=== PATIENT | female | born 2000 | race Caucasian/White ===

== ENCOUNTER 2024-02-01 12:19 | Outpatient (CLI) | payer MEDICAID, SELFPAY ==
[2024-02-01 13:40] LABS: HCG,Quantitative 9118 mIU/ml (0-5.42)
[2024-02-02 08:51] LABS: Progesterone 12.2 ng/mL (.)
== END 2024-02-01 23:59 | disposition home or self-care (01) ==
LOC: LAB 12:21
PROVIDERS: Visit Provider Obstetrics & Gynecology
DX: N92.6 Irregular menstruation, unspecified (principal)
CPT/HCPCS: 36415; 84144; 84702

== ENCOUNTER 2024-02-21 08:35 | Outpatient (CLI) | payer MEDICAID, SELFPAY | END 2024-02-21 23:59 | disposition home or self-care (01) | LOC: LAB.DROPOF 02-22 15:10 | PROVIDERS: Visit Provider Obstetrics & Gynecology | DX: Z34.90 Encounter for supervision of normal pregnancy, unspecified, unspecified trimester (principal) | CPT/HCPCS: 87086; 87088; 87186 ==

== ENCOUNTER 2024-02-28 11:04 | Outpatient (CLI) | payer MEDICAID, SELFPAY ==
[2024-02-28 11:44] LABS: Basophils % 0.5 % (0.1-2.0); Eosinophils % 0.6 % (0.1-12.0); Hematocrit 41.8 % (37.0-47.0); Hemoglobin 13.2 g/dL (12.2-16.2); Lymphocytes # 1.6 K/mm3 (0.7-4.5); Lymphocytes % 25.4 % (10-50); Mean Corpuscular HGB Conc 31.7 g/dL (31.8-35.4); Mean Corpuscular Hemoglobin 24.6 pg (27.0-31.2); Mean Corpuscular Volume 77.6 fl (81-99); Mean Platelet Volume 8.8 fl (7.4-10.4); Monocytes # 0.3 K/mm3 (0.1-1.0); Monocytes % 4.3 % (1.7-9.3); Neutrophils # 4.3 K/mm3 (1.8-7.8); Neutrophils % 69.1 % (37.0-80.0); Platelet Count 316 K/mm3 (142-424); Red Blood Count 5.38 M/mm3 (4.20-5.40); White Blood Count 6.2 K/mm3 (4.8-10.8)
[2024-02-28 12:10] LABS: Alanine Aminotransferase 26 U/L (12-78); Albumin Level 3.7 g/dl (3.5-5.0); Albumin/Globulin Ratio 1.3 (1.1-1.8); Alkaline Phosphatase 56 U/L (38-126); Anion Gap 8.9 mEq/L (5-15); Aspartate Amino Transferase 30 U/L (14-36); Bilirubin,Total 0.5 mg/dl (0.2-1.3); Blood Urea Nitrogen 8 mg/dl (7-17); Calcium 9.3 mg/dl (8.4-10.2); Carbon Dioxide 23 mmol/L (22.0-30.0); Chloride 107 mmol/L (98-107); Estimated Glomerular Filt Rate 196 ml/min (>60); GFR (African American) 237 ML/MIN (>60); Globulin 2.8 g/dL (1.3-3.2); Glucose 150 mg/dl (74-100); Potassium 3.9 mmoL/L (3.5-5.1); Sodium 135 mmol/L (136-145); Total Protein,Serum 6.5 g/dl (6.3-8.2)
[2024-02-28 12:39] LABS: Thyroid Stimulating Hormone 1.44 uIU/mL (0.465-4.68)
[2024-02-28 12:55] LABS: HIV (1&2) Antibody Rapid NONREACTIVE (NONREACTIVE)
[2024-02-29 06:16] LABS: HCV Ab Non Reactive (Non Reactive); Hepatitis B Surface Antigen Negative (Negative)
[2024-02-29 13:43] LABS: Rapid Plasma Reagin Ab Titer Non Reactive titer (NonRea<1:1)
== END 2024-02-28 23:59 | disposition home or self-care (01) ==
LOC: LAB 11:09
PROVIDERS: Visit Provider Obstetrics & Gynecology
DX: Z34.90 Encounter for supervision of normal pregnancy, unspecified, unspecified trimester (principal)
CPT/HCPCS: 86803; 86703; 80050; 80053; 84443; 85025; 86593; 86762; 86850; 87340

== ENCOUNTER 2024-02-29 19:36 | Outpatient (CLI) | payer MEDICAID, SELFPAY ==
[2024-02-29 19:48] VITALS: BMI 26.2
--- NOTE | 2024-02-29 19:48 | PC.NURSE ---
Spoke with Promise gomez [facility] to verify dosing. No patient label on medication left by pharmacy and no orders in the MAR. Dosing is okay to give to patient. 1gram Vanc in 250ml of NS for staphylococcus aureaus.
[2024-02-29 19:51] VITALS: BP 116/68; PULSE 103; RESP 18; TEMP 36.9; O2SAT 100
[2024-02-29 19:58] VITALS: BP 116/68; PULSE 103; RESP 18; TEMP 36.9; O2SAT 100
[2024-02-29] MEDS: VANCOMYCIN HCL 1,000 MG in 0.9 % SODIUM CHLORIDE 250 ML 125 MG IV (19:58)
[2024-02-29 21:55] VITALS: BP 111/65; PULSE 86; RESP 17; TEMP 36.9; O2SAT 100
== END 2024-02-29 21:55 | disposition home or self-care (01) ==
LOC: INF 19:39
PROVIDERS: Visit Provider Obstetrics & Gynecology
DX: B95.61 Methicillin susceptible Staphylococcus aureus infection as the cause of diseases classified elsewhere (principal); O99.830 Other infection carrier state complicating pregnancy; Z3A.18 18 weeks gestation of pregnancy
CPT/HCPCS: J3370; J7050

== ENCOUNTER 2024-03-01 07:59 | Outpatient (CLI) | payer MEDICAID, SELFPAY ==
--- NOTE | 2024-03-01 08:58 | EXP.PHA.CONS ---
Pharmacy Consult Date: 03/01/24 Time: 08:58 Referring provider: DR. LEÓN Reason for Consult:: VANCOMYCIN DOSING Allergies Allergy/AdvReac Type Severity Reaction Status Date / Time No Known Allergies Allergy Verified 02/21/24 08:21 Home Medications ?Medication ?Instructions ?Recorded ?Confirmed ?Type levothyroxine 100 mcg tablet 100 mcg PO DAILY 11/23/18 02/21/24 History (Synthroid) subcutaneous insulin pump #1 ea 11/23/18 02/21/24 History promethazine 12.5 mg tablet 12.5 mg PO TID PRN nausea and 02/21/24 02/21/24 Rx vomiting #30 tabs New Prescriptions to Start Prescriptions: Height: 1.55 m Weight: 63 kg Laboratory Results:: SRCR 0.4 ON 02/28/24 Medical History: Medical History (Updated 02/21/24 @ 10:06 by Lesly León DO) Hypothyroidism complicating Type 1 diabetes mellitus complicating , antepartum Hypothyroidism Diabetes Assessment and Plan Assessment and plan all Dx Assessment and Plan for all problems:: PATIENT RECEIVED VANCOMYCIN 1 GM OVERNIGHT. RECOMMEND CONTINUING WITH VANCOMYCIN 1250 MG Q12H AT THIS TIME.
[2024-03-01 09:15] VITALS: BP 125/85; PULSE 86; RESP 18; O2SAT 100
[2024-03-01] MEDS: 0.9 % SODIUM CHLORIDE 50 ML 100 ML IV (09:18)
[2024-03-01] MEDS: VANCOMYCIN HCL 1,000 MG in 0.9 % SODIUM CHLORIDE 250 ML 125 MG IV (09:18)
[2024-03-01 11:30] VITALS: BP 105/52; PULSE 89; RESP 18; TEMP 36.6; O2SAT 100
--- NOTE | 2024-03-01 11:30 | PC.NURSE ---
1130-PT TO D/C HOME AND TO RETURN AT 1999 THIS EVENING FOR PM DOSE OF VANC
--- NOTE | 2024-03-01 19:45 | PC.NURSE ---
Patient on floor for IV antibiotic infusion. Accompanied by significant other. Patient sitting in chair in room 271.
[2024-03-01 19:49] VITALS: BP 127/68; PULSE 98; RESP 18; TEMP 37.2; O2SAT 100
[2024-03-01] MEDS: VANCOMYCIN HCL 1,250 MG in 0.9 % SODIUM CHLORIDE 250 ML 125 MG IV (19:51)
--- NOTE | 2024-03-01 20:39 | PC.NURSE ---
Patient sitting in chair playing cards with significant other. Tolerating IV infusion well with no redness or swelling noted at midline site. No needs or concerns voiced to RN at this time
--- NOTE | 2024-03-01 21:28 | PC.NURSE ---
Pt in chair, significant other present. Infusing still in progree. No needs voiced. Reports comfortability, call light in reach
== END 2024-03-01 23:59 | disposition home or self-care (01) ==
LOC: INF 08:00
PROVIDERS: Visit Provider Obstetrics & Gynecology
DX: O98.919 Unspecified maternal infectious and parasitic disease complicating pregnancy, unspecified trimester (principal); B95.61 Methicillin susceptible Staphylococcus aureus infection as the cause of diseases classified elsewhere; Z3A.00 Weeks of gestation of pregnancy not specified
CPT/HCPCS: 36410; 36569; 96365; 96366; J3370; J7050

== ENCOUNTER 2024-03-02 08:02 | Outpatient (CLI) | payer MEDICAID, SELFPAY ==
[2024-03-02 09:12] LABS: Vancomycin,Trough < 5.0 ug/mL (5.0-10.0)
[2024-03-02] MEDS: VANCOMYCIN HCL 1,500 MG in 0.9 % SODIUM CHLORIDE 250 ML 125 MG IV ×2 (09:38→20:05)
[2024-03-02 09:45] VITALS: BP 103/57; PULSE 84; RESP 18; O2SAT 100
[2024-03-02 10:15] VITALS: BP 110/62; PULSE 82
[2024-03-02 10:45] VITALS: BP 112/63; PULSE 82
[2024-03-02 11:15] VITALS: BP 121/81; PULSE 81
[2024-03-02 11:45] VITALS: BP 117/65; PULSE 79
[2024-03-02 22:10] VITALS: BP 111/64; PULSE 97; RESP 16; TEMP 36.7; O2SAT 97
== END 2024-03-02 23:59 | disposition home or self-care (01) ==
LOC: INF 08:02
PROVIDERS: Visit Provider Obstetrics & Gynecology
DX: O23.40 Unspecified infection of urinary tract in pregnancy, unspecified trimester (principal)
CPT/HCPCS: 80202; 96365; 96366; J3370

== ENCOUNTER 2024-03-03 07:58 | Outpatient (CLI) | payer MEDICAID, SELFPAY ==
[2024-03-03] MEDS: SODIUM CHLORIDE 0.9% 10ML FLUSH SYRINGE 10 ML IV (08:34)
[2024-03-03] MEDS: VANCOMYCIN HCL 1,500 MG in 0.9 % SODIUM CHLORIDE 250 ML 125 MG IV ×2 (08:34→21:14)
[2024-03-03 08:36] VITALS: BP 100/69; PULSE 69; RESP 14; TEMP 36.7; O2SAT 100; BMI 26.2
[2024-03-03 10:36] VITALS: BP 106/60; PULSE 102; RESP 18; O2SAT 100
[2024-03-03 21:19] VITALS: BMI 26.2
[2024-03-03 21:22] VITALS: BP 126/78; PULSE 102; RESP 18; TEMP 36.7; O2SAT 100
== END 2024-03-03 23:26 | disposition home or self-care (01) ==
PROVIDERS: Visit Provider Obstetrics & Gynecology
DX: N39.0 Urinary tract infection, site not specified (principal)
CPT/HCPCS: 96365; 96366; J3370

== ENCOUNTER 2024-03-04 10:21 | Outpatient (CLI) | payer MEDICAID, SELFPAY ==
[2024-03-04 10:49] VITALS: BMI 26.2
--- NOTE | 2024-03-04 10:57 | PC.NURSE ---
Vanc trough collected per Candice in pharmacy
[2024-03-04 11:07] LABS: Anion Gap 8.3 mEq/L (5-15); Blood Urea Nitrogen 8 mg/dl (7-17); Calcium 8.9 mg/dl (8.4-10.2); Carbon Dioxide 21 mmol/L (22.0-30.0); Chloride 107 mmol/L (98-107); Creatinine Clearance Estimated 288 mL/min (50-200); Estimated Glomerular Filt Rate 273 ml/min (>60); GFR (African American) 331 ML/MIN (>60); Glucose 254 mg/dl (74-100); Potassium 4.3 mmoL/L (3.5-5.1); Sodium 132 mmol/L (136-145)
[2024-03-04 11:14] LABS: Vancomycin,Trough < 5.0 ug/mL (5.0-10.0)
[2024-03-04 20:09] VITALS: BMI 26.2
[2024-03-04] MEDS: VANCOMYCIN HCL 1,000 MG in 0.9 % SODIUM CHLORIDE 250 ML 250 MG IV (20:18)
[2024-03-04 20:22] VITALS: BP 130/71; PULSE 95; RESP 18; TEMP 36.7; O2SAT 97
[2024-03-04 21:01] VITALS: BP 130/71; PULSE 95; RESP 18; TEMP 36.8; O2SAT 97
== END 2024-03-04 23:59 | disposition home or self-care (01) ==
PROVIDERS: Visit Provider Obstetrics & Gynecology
DX: O23.40 Unspecified infection of urinary tract in pregnancy, unspecified trimester (principal); Z3A.11 11 weeks gestation of pregnancy
CPT/HCPCS: 80048; 80202; 96365; 96366; 96367; J3370; J7050

== ENCOUNTER 2024-03-05 08:01 | Outpatient (CLI) | payer MEDICAID, SELFPAY ==
[2024-03-05] VITALS (7 sets, daily range): BP systolic 108–132; BP diastolic 64–86; PULSE 89–103; RESP 16–18; TEMP 36.6–37.2; O2SAT 97–99; BMI 25.6
[2024-03-05] MEDS: VANCOMYCIN HCL 1,000 MG in 0.9 % SODIUM CHLORIDE 250 ML 125 MG IV (08:15)
[2024-03-05] MEDS: VANCOMYCIN HCL 1,000 MG in 0.9 % SODIUM CHLORIDE 250 ML 250 MG IV ×2 (14:00→21:48)
== END 2024-03-05 23:59 | disposition home or self-care (01) ==
PROVIDERS: Visit Provider Obstetrics & Gynecology
DX: O23.41 Unspecified infection of urinary tract in pregnancy, first trimester (principal)
CPT/HCPCS: 96365; 96366; 96367; G0463; J3370; J7050

== ENCOUNTER 2024-03-06 07:35 | Outpatient (CLI) | payer MEDICAID, SELFPAY ==
[2024-03-06 07:50] VITALS: BP 117/68; PULSE 86; RESP 16; TEMP 37; O2SAT 100; BMI 26.4
[2024-03-06] MEDS: VANCOMYCIN HCL 1,000 MG in 0.9 % SODIUM CHLORIDE 250 ML 250 MG IV ×3 (08:15→22:42)
[2024-03-06 08:38] LABS: Vancomycin,Trough 5.1 ug/mL (5.0-10.0)
[2024-03-06 09:15] VITALS: BP 110/67; PULSE 73
[2024-03-06 15:00] VITALS: BP 122/63; PULSE 73; RESP 18; O2SAT 99
[2024-03-06 16:00] VITALS: BP 118/73; PULSE 86
[2024-03-06 22:35] VITALS: BP 129/78; PULSE 81; RESP 16; TEMP 36.7; O2SAT 98
[2024-03-06 22:36] VITALS: BMI 26.4
== END 2024-03-06 23:59 | disposition home or self-care (01) ==
PROVIDERS: Visit Provider Obstetrics & Gynecology
DX: O23.40 Unspecified infection of urinary tract in pregnancy, unspecified trimester (principal); Z3A.11 11 weeks gestation of pregnancy
CPT/HCPCS: 80202; 96365; 96366; 96367; J3370; J7050

== ENCOUNTER 2024-03-07 09:00 | Outpatient (CLI) | payer MEDICAID, SELFPAY ==
[2024-03-07 09:10] VITALS: BP 110/71; PULSE 68; RESP 16; TEMP 36.7; O2SAT 100; BMI 27.1
[2024-03-07] MEDS: VANCOMYCIN HCL 1,000 MG in 0.9 % SODIUM CHLORIDE 250 ML 250 MG IV ×3 (09:18→23:03)
[2024-03-07 10:20] VITALS: BP 119/72; PULSE 100; RESP 18; O2SAT 100
[2024-03-07 15:29] VITALS: BP 107/73; PULSE 71; RESP 18; TEMP 36.8; O2SAT 100
[2024-03-07 16:38] VITALS: BP 137/68; PULSE 97; RESP 18; O2SAT 100
[2024-03-07 23:02] VITALS: BP 119/92; PULSE 89; RESP 16; O2SAT 94
[2024-03-08 00:38] VITALS: BP 124/86; PULSE 92; RESP 16; TEMP 36.7; O2SAT 97
== END 2024-03-08 00:40 | disposition home or self-care (01) ==
LOC: INF 09:00
PROVIDERS: Visit Provider Obstetrics & Gynecology
DX: O23.40 Unspecified infection of urinary tract in pregnancy, unspecified trimester (principal); Z3A.11 11 weeks gestation of pregnancy
CPT/HCPCS: 96365; 96366; 96367; J3370; J7050

== ENCOUNTER 2024-04-21 14:04 | Emergency (ER) | payer MEDICAID, SELFPAY ==
[2024-04-21 14:20] VITALS: BP 116/73; PULSE 102; RESP 20; TEMP 36.6; O2SAT 100; BMI 27.6
--- NOTE | 2024-04-21 14:46 | ED_ITS ---
Discharge Plan Disposition Patient Disposition: Home, Self-Care Condition: Good Prescriptions Prescriptions: New cephalexin 500 mg capsule 500 mg PO BID 10 Days Qty: 20 0RF No Action (DME) subcutaneous insulin pump Misc See Dose Instructions .ROUTE .MEDSUPPLY Qty: 1 Dose Instruction: As directed Rx Instructions: As directed levothyroxine [Synthroid] 100 mcg tablet 100 mcg PO DAILY insulin lispro 100 unit/mL solution See Rx Instructions .ROUTE .COMPLEX Patient Comments: USE DIRECTED-UP TO 100 UNITS DAILY Rx Instructions: DIRECTED Referrals Follow up/Referrals: Provider,Referral, MD [Primary Care Provider] - See instructions Activity Restrictions/Add. Instructions Additional Instructions/Restrictions: *Monitor Temp, Over the counter Motrin or Tylenol as directed/as needed Tylenol every 4 hours and Motrin every 6 hours (as long as your family doctor has told you that you can take it) for fever or pain. and straight to ER if unable to lower temp less than 101.0 after medication given *Warm salt water gargles may help to soothe the throat *Throat Lozenges? *Warm fluids like tea with honey may help to soothe the throat? *Sleep elevated *Humidifier/Vaporizer Jenna pot may help with nasal congestion Follow up IMMEDIATELY for new or worsening symptoms or no Noticeable improvement over the next 48-72 hours. 911 for difficulty breathing or swallowing You were tested for today for Upper Respiratory Panel with COVID19 your test result should be back in the next 24hours, you may check your results on the [facility] Clinical Impressions Clinical Impression: Sinusitis Qualifiers: Sinusitis location: unspecified location Chronicity: unspecified Qualified Code(s): J32.9 - Chronic sinusitis, unspecified Instructions Patient Instructions: DI for Nasal Congestion Print Language Print Language: Portuguese Discharge ED Provider: Anne Sweeney [facility] HPI General Stated complaint: congestion, loss of appetite Mode of Arrival: Ambulatory Source of Information: Patient Limitations: No Limitations Time Seen by Provider: 04/21/24 14:49 Description of Symptoms (Recalled from Triage Doc. by RN): PATIENT C/O COVID/FLU TYPE SYMPTOMS THAT STARTED 3 DAYS AGO. PATIENT REPORTS SHE IS 17 WEEKS HEENT Symptoms (Recalled from RN notes): No Resp Symptoms (Recalled from RN notes): No Skin Symptoms (Recalled from RN notes): No MS Symptoms (Recalled from RN notes): No Functional Status (Recalled from RN notes): WNL History of Present Illness Provider Complaint: Patient states that she is 16wks OB States she has been having sinus congestion and pressure for the last 3-5 days, States that she has been exposed to COVID not sure if she may have a sinus infection or it may be COVID Related Data Home Medications ?Medication ?Instructions ?Recorded ?Confirmed levothyroxine 100 mcg tablet 100 mcg PO DAILY 11/23/18 04/21/24 (Synthroid) subcutaneous insulin pump #1 ea 11/23/18 04/21/24 insulin lispro 100 unit/mL See Rx Instructions .Route .COMPLEX 04/21/24 04/21/24 subcutaneous solution Previous Rx's ?Medication ?Instructions ?Recorded cephalexin 500 mg capsule 500 mg PO BID 10 days #20 caps 04/21/24 Allergies Allergy/AdvReac Type Severity Reaction Status Date / Time No Known Allergies Allergy Verified 03/27/24 09:32 Worker's Comp Is this a Worker's Comp case?: [facility] Dis[facility]: The information contained in this section may have been updated after the patient was seen, as this information can be updated by other users. 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 Travel in the last 8 weeks: None ROS Obtained: Yes All systems reviewed & no additional complaints except as documented and Yes Systems reviewed as appropriate & no additional complaints except as documented Constitutional Constitutional: Reports system reviewed and no additional complaints, except as documented, Reports as per HPI and Reports headache(s) ENT Ears, Nose, Mouth, and Throat: Reports system reviewed and no additional complaints, except as documented, Reports as per HPI, Reports headache(s), Reports nasal congestion, Reports sinus pain and Reports sinus pressure Cardiovascular Cardiovascular: Reports system reviewed and no additional complaints, except as documented and Reports as per HPI Respiratory Respiratory: Reports system reviewed and no additional complaints, except as documented and Reports as per HPI Gastrointestinal Gastrointestingal: Reports system reviewed and no additional complaints, except as documented and as per HPI Neurologic Neurologic: Reports headache(s) Physical Exam General General appearance: alert and in no apparent distress ENT ENT exam: Present mucous membranes moist Expanded ENT Exam Nose exam: Present sinus tenderness Throat exam: Present other (PND noted) Respiratory Respiratory exam: Present normal lung sounds bilaterally; Absent respiratory distress or wheezes Cardiovascular Cardiovascular exam: Present regular rate, normal rhythm and normal heart sounds Neurological Exam Neurological exam: Present alert, oriented X3 and normal gait Medical Decision Making Medical Records Screening: Per USPSTF and CDC recommendations, given the prevalence of disease in our region, it is our hospital?s policy to screen for HIV and viral Hepatitis for all patients aged 18 and over and those with ongoing risk factors. Vladimir Inquiry Pt receiving controlled substance: No Vladimir was queried for this patient: No Vital Signs: 04/21/24 14:20 Temperature 97.8 F Temperature Source Oral Pulse Rate [Left Brachial] 102 H Respiratory Rate 20 Blood Pressure [Left Arm] 116/73 Blood Pressure Mean [Left Arm] 87 Blood Pressure Source [Left Arm] Automatic Cuff Blood Pressure Position [Left Arm] Sitting 02 Sat by Pulse Oximetry 100 Oxygen Delivery Method Room Air Medical Decision Narrative: medication discussed with pharmacy
[2024-04-21 14:55] VITALS: BP 116/73; PULSE 102; RESP 20; TEMP 36.6; O2SAT 100
[2024-04-21 15:00] LABS: Coronavirus 19, PCR Not Detected (NotDetected); Influenza A, PCR Not Detected (NotDetected); Influenza B, PCR Not Detected (NotDetected)
== END 2024-04-21 14:58 | disposition home or self-care (01) ==
PROVIDERS: Emergency Provider Nurse Practitioner
DX: J32.9 Chronic sinusitis, unspecified (principal)
CPT/HCPCS: 87636; 99213; G0381

== ENCOUNTER 2024-05-02 12:43 | Observation (INO) | payer MEDICAID, SELFPAY ==
[2024-05-02] VITALS (8 sets, daily range): BP systolic 109–134; BP diastolic 63–84; PULSE 82–100; RESP 16–17; TEMP 36.4–36.7; O2SAT 96–100; BMI 27.6
--- NOTE | 2024-05-02 12:48 | ED_ITS ---
Discharge Plan Disposition Patient Disposition: Home, Self-Care Prescriptions Prescriptions: No Action (DME) subcutaneous insulin pump Misc See Dose Instructions .ROUTE .MEDSUPPLY Qty: 1 Dose Instruction: As directed Rx Instructions: As directed insulin lispro 100 unit/mL solution See Rx Instructions .ROUTE .COMPLEX Patient Comments: USE DIRECTED-UP TO 100 UNITS DAILY Rx Instructions: DIRECTED promethazine 12.5 mg tablet 12.5 mg PO NEEDED PRN (Reason: Morning Sickness) levothyroxine 125 mcg tablet 125 mcg PO DAILY ondansetron 4 mg tablet,disintegrating 4 mg PO NEEDED PRN (Reason: Nausea) ondansetron 4 mg tablet,disintegrating 4 mg PO NEEDED PRN (Reason: Nausea And Vomiting) Referrals Follow up/Referrals: Provider,Referral, MD [Primary Care Provider] - See instructions Clinical Impressions Clinical Impression: Headache Qualifiers: Headache type: other headache syndrome Qualified Code(s): G44.89 - Other headache syndrome Print Language Print Language: Upper Sorbian Discharge ED Provider: Jan Torres General Adult HPI <Eb Abbott MD - Last Filed: 05/02/24 16:05> General Chief complaint: Headache Stated complaint: vomiting, headache 19 weeks preg Time Seen by Provider: 05/02/24 12:45 Mode of Arrival: Ambulatory Source of Information: Patient Limitations: No Limitations History of Present Illness HPI narrative: This is a 23-year-old female with a history of type 1 diabetes, , currently 18 weeks who presents with acute onset headache and nausea/vomiting. States that she woke up at about 3:30 AM with acute onset, holocephalic headache. States that it has progressively worsened throughout the morning. Reports associated nausea and vomiting. Denies diarrhea. States that she has never had a headache like this before and has no history of migraines. Denies photophobia or vision changes. Denies nuchal rigidity. Denies fever. Related Data Home Medications ?Medication ?Instructions ?Recorded ?Confirmed subcutaneous insulin pump #1 ea 11/23/18 05/02/24 insulin lispro 100 unit/mL See Rx Instructions .Route .COMPLEX 04/21/24 05/02/24 subcutaneous solution levothyroxine 125 mcg tablet 125 mcg PO DAILY 05/02/24 05/02/24 ondansetron 4 mg disintegrating 4 mg PO NEEDED PRN Nausea 05/02/24 05/02/24 tablet ondansetron 4 mg disintegrating 4 mg PO NEEDED PRN Nausea And 05/02/24 05/02/24 tablet Vomiting promethazine 12.5 mg tablet 12.5 mg PO NEEDED PRN Morning 05/02/24 05/02/24 Sickness Allergies Allergy/AdvReac Type Severity Reaction Status Date / Time No Known Allergies Allergy Verified 05/02/24 13:04 [facility] <Eb Abbott MD - Last Filed: 05/02/24 16:05> [facility] Disclaimer: The information contained in this section may have been updated after the patient was seen, as this information can be updated by other users. 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 Travel in the last 8 weeks: None Other Medical History Have you received the Flu Vaccine for this season: No Have you received the Pneumonia Vaccine: No <Eb Abbott MD - Last Filed: 05/02/24 16:05> ROS Obtained: Yes All systems reviewed & no additional complaints except as documented Physical Exam <Eb Abbott MD - Last Filed: 05/02/24 16:05> General General appearance: alert and in no apparent distress Eye Eye exam: Present normal appearance, PERRL and EOMI Respiratory Respiratory exam: Present normal lung sounds bilaterally; Absent respiratory distress Cardiovascular Cardiovascular exam: Present regular rate and normal rhythm Abdominal Exam Abdominal exam: Present soft and distention; Absent tenderness, guarding or rebound Extremities Exam Extremities exam: Present normal inspection Neurological Exam Neurological exam: Present alert and oriented X3 Skin Skin exam: Present warm and dry Medical Decision Making <Eb Abbott MD - Last Filed: 05/02/24 16:05> Medical Records Medical records reviewed: Yes I reviewed the patient's medical records. Screening: Per USPSTF and CDC recommendations, given the prevalence of disease in our region, it is our hospital?s policy to screen for HIV and viral Hepatitis for all patients aged 18 and over and those with ongoing risk factors. 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 04/25/2024 notable for patient's past medical history of type 1 diabetes and OB visit at 18 weeks and 1 day Vladimir Inquiry Pt receiving controlled substance: No Vital Signs: 05/02/24 12:56 05/02/24 12:57 05/02/24 14:30 Temperature 97.6 F Temperature Source Oral Pulse Rate 100 H 89 Pulse Rate [Left] 87 Respiratory Rate 16 Blood Pressure 117/80 124/80 Blood Pressure [Right Arm] 134/84 Blood Pressure Mean 91 Blood Pressure Mean [Right Arm] 100 Blood Pressure Source [Right Arm] Automatic Cuff Blood Pressure Position [Right Arm] Sitting 02 Sat by Pulse Oximetry 100 100 98 Oxygen Delivery Method Room Air Room Air Room Air 05/02/24 15:00 05/02/24 15:30 Temperature Temperature Source Pulse Rate 89 82 Pulse Rate [Left] Respiratory Rate Blood Pressure 119/81 121/76 Blood Pressure [Right Arm] Blood Pressure Mean 90 86 Blood Pressure Mean [Right Arm] Blood Pressure Source [Right Arm] Blood Pressure Position [Right Arm] 02 Sat by Pulse Oximetry 96 98 Oxygen Delivery Method Room Air Room Air Lab Data Lab Results 05/02/24 12:58: WBC 9.7, RBC 5.04, Hgb 11.8 L, Hct 35.3 L, MCV 69.9 L, MCH 23.4 L, MCHC 33.5, RDW 15.6, Plt Count 266, MPV 7.4, Neut % (Auto) 82.3 H, Lymph % (Auto) 14.4, Cooper % (Auto) 2.7, Eos % (Auto) 0.3, Baso % (Auto) 0.3, Neut # (Auto) 8.0 H, Lymph # (Auto) 1.4, Cooper # (Auto) 0.3, Eos # (Auto) 0.0, Baso # (Auto) 0.0, PT 9.8 L, INR 0.86 L, Sodium 136, Potassium 3.9, Chloride 108 H, C arbon Dioxide 21 L, Anion Gap 10.9, BUN 13, Creatinine 0.40 L, Estimated Creat Clear 227, Estimated GFR 196, Est GFR ( Amer) 237, Glucose 108 H, Calcium 9.3, Total Bilirubin 0.5, AST 29, ALT 27, Alkaline Phosphatase 70, Total Protein 7.3, Albumin 4.2, Globulin 3.1, Albumin/Globulin Ratio 1.4, HIV 1&2 Antibody Rapid Nonreactive 05/02/24 : Urine Color Yellow, Urine Appearance Clear, Urine pH 6.5, Ur Specific [place] 1.010, Urine Protein Negative, Urine Glucose (UA) Negative, Urine Ketones 1+, Urine Blood Negative, Urine Nitrate Negative, Urine Bilirubin Negative, Urine Urobilinogen 0.2, Ur Leukocyte Esterase Negative, Urine RBC 3-5, Urine WBC 50-100, Ur Squamous Epith Cells 10-20, Urine Bacteria Trace, Urine Yeast Occasional, Acetone Level None detected 05/02/24 12:58 05/02/24 12:58 Orders (Tests/Meds): ED MEDICATIONS Discontinued Medications Generic Name Dose Route Start Last Admin Trade Name Geovannyq PRN Reason Stop Dose Admin Acetaminophen 1,000 mg 05/02/24 15:15 05/02/24 15:26 Acetaminophen 500mg Tab PO 05/02/24 15:16 1,000 mg ONCE ONE Administration Diphenhydramine HCl 25 mg 05/02/24 12:57 05/02/24 13:10 Diphenhydramine 50mg/Ml Vial IV 05/02/24 12:58 25 mg ONCE ONE Administration Lactated Ringer's 500 mls @ 999 mls/hr 05/02/24 12:57 05/02/24 13:10 Lactated Ringer's 500ml IV 05/02/24 13:27 999 mls/hr .Q31M ONE Administration Magnesium Sulfate 2 gm in 50 mls @ 50 mls/hr 05/02/24 15:15 05/02/24 15:26 Magnesium Sulfate 2gm/50ml Premix IV 05/02/24 16:14 50 mls/hr ONCE ONE Administration Iopamidol 80 ml 05/02/24 14:04 05/02/24 14:05 Iopamidol-370 (76%);100ml Bottle IV 05/02/24 14:05 80 ml ONCE ONE Administration Ondansetron HCl 4 mg 05/02/24 15:32 05/02/24 15:46 Ondansetron 4mg/2ml Vial IV 05/02/24 15:33 4 mg ONCE ONE Administration Promethazine HCl 25 mg 05/02/24 12:57 05/02/24 13:10 Promethazine Hcl 25mg/Ml 1ml Vial IV 05/02/24 12:58 25 mg ONCE ONE Administration Sodium Chloride 25 ml 05/02/24 12:57 05/02/24 13:10 Sodium Chloride 0.9% 25ml Bag IV 05/02/24 12:58 25 ml ONCE ONE Administration Sodium Chloride 50 ml 05/02/24 14:04 05/02/24 14:05 0.9 % Sodium Chloride 50 Ml Vial IV 05/02/24 14:05 50 ml ONCE ONE Administration Sodium Chloride 10 ml 05/02/24 14:04 05/02/24 14:05 Sodium Chloride 0.9% 10ml Syr (Rad Only) IV 05/02/24 14:05 10 ml ONCE ONE Administration ORDERS Category Date Time Status CT Venogram head Stat Cat Scan 05/02/24 12:[address] head/brain wo con Stat Cat Scan 05/02/24 12:57 Completed Acetone, Serum (Rapid) Stat Lab 05/02/24 Completed CBC w/Auto Diff [Complete Blood Count Auto Diff] Stat Lab 05/02/24 12:58 Completed CMP [Comprehensive Metabolic Panel] Stat Lab 05/02/24 12:58 Completed HIV (1&2) Antibody Rapid Stat Lab 05/02/24 12:58 Completed Hep C Ab with Reflex to RNA Stat Lab 05/02/24 12:58 Received PT/INR [Prothrombin Time INR] Stat Lab 05/02/24 12:58 Completed Urinalysis and Microscopic Stat Lab 05/02/24 Completed Urine Culture Stat Micro 05/02/24 Received Medical Decision Narrative: In summary, this 23-year-old female with a history of type 1 diabetes, currently 18 weeks , G1, P0 presents to the emergency department today with acute onset holocephalic headache with associated nausea and vomiting since 0330 this morning. On initial evaluation patient is afebrile, hemodynamically stable, nontoxic-appearing, however actively vomiting, GCS 15, no focal neurological deficits. Differential diagnosis includes but is not limited to CVST, SAH, migraine, DKA. Based on these concerns, I ordered CBC, CMP, urinalysis, acetone, PT/INR, CT head, CT venogram head. Patient received Tylenol, Benadryl, Phenergan for treatment. Labs personally reviewed demonstrate normal white blood cell count, INR of 0.86, normal creatinine, glucose of 108, normal anion gap, negative acetone level. CT imaging personally interpreted demonstrates no acute intracranial pathology and no evidence of venous sinus thrombosis. On reassessment patient still complaining of a headache and states that it is not any better than it was when she got here. Still having intermittent vomiting. Administered magnesium and Zofran. At the time of shift change, urinalysis and reevaluation was pending. See transfer of care note for ultimate impression of disposition <Jan Torres MD - Last Filed: 05/02/24 16:49> Vital Signs: 05/02/24 12:56 05/02/24 12:57 05/02/24 14:30 Temperature 97.6 F Temperature Source Oral Pulse Rate 100 H 89 Pulse Rate [Left] 87 Respiratory Rate 16 Blood Pressure 117/80 124/80 Blood Pressure [Right Arm] 134/84 Blood Pressure Mean 91 Blood Pressure Mean [Right Arm] 100 Blood Pressure Source [Right Arm] Automatic Cuff Blood Pressure Position [Right Arm] Sitting 02 Sat by Pulse Oximetry 100 100 98 Oxygen Delivery Method Room Air Room Air Room Air 05/02/24 15:00 05/02/24 15:30 Temperature Temperature Source Pulse Rate 89 82 Pulse Rate [Left] Respiratory Rate Blood Pressure 119/81 121/76 Blood Pressure [Right Arm] Blood Pressure Mean 90 86 Blood Pressure Mean [Right Arm] Blood Pressure Source [Right Arm] Blood Pressure Position [Right Arm] 02 Sat by Pulse Oximetry 96 98 Oxygen Delivery Method Room Air Room Air Lab Data Lab Results 05/02/24 12:58: WBC 9.7, RBC 5.04, Hgb 11.8 L, Hct 35.3 L, MCV 69.9 L, MCH 23.4 L, MCHC 33.5, RDW 15.6, Plt Count 266, MPV 7.4, Neut % (Auto) 82.3 H, Lymph % (Auto) 14.4, Cooper % (Auto) 2.7, Eos % (Auto) 0.3, Baso % (Auto) 0.3, Neut # (Auto) 8.0 H, Lymph # (Auto) 1.4, Cooper # (Auto) 0.3, Eos # (Auto) 0.0, Baso # (Auto) 0.0, PT 9.8 L, INR 0.86 L, Sodium 136, Potassium 3.9, Chloride 108 H, C arbon Dioxide 21 L, Anion Gap 10.9, BUN 13, Creatinine 0.40 L, Estimated Creat Clear 227, Estimated GFR 196, Est GFR ( Amer) 237, Glucose 108 H, Calcium 9.3, Total Bilirubin 0.5, AST 29, ALT 27, Alkaline Phosphatase 70, Total Protein 7.3, Albumin 4.2, Globulin 3.1, Albumin/Globulin Ratio 1.4, HIV 1&2 Antibody Rapid Nonreactive 05/02/24 : Urine Color Yellow, Urine Appearance Clear, Urine pH 6.5, Ur Specific [place] 1.010, Urine Protein Negative, Urine Glucose (UA) Negative, Urine Ketones 1+, Urine Blood Negative, Urine Nitrate Negative, Urine Bilirubin Negative, Urine Urobilinogen 0.2, Ur Leukocyte Esterase Negative, Urine RBC 3-5, Urine WBC 50-100, Ur Squamous Epith Cells 10-20, Urine Bacteria Trace, Urine Yeast Occasional, Acetone Level None detected Orders (Tests/Meds): ED MEDICATIONS Discontinued Medications Generic Name Dose Route Start Last Admin Trade Name Sindi PRN Reason Stop Dose Admin Acetaminophen 1,000 mg 05/02/24 15:15 05/02/24 15:26 Acetaminophen 500mg Tab PO 05/02/24 15:16 1,000 mg ONCE ONE Administration Diphenhydramine HCl 25 mg 05/02/24 12:57 05/02/24 13:10 Diphenhydramine 50mg/Ml Vial IV 05/02/24 12:58 25 mg ONCE ONE Administration Lactated Ringer's 500 mls @ 999 mls/hr 05/02/24 12:57 05/02/24 13:10 Lactated Ringer's 500ml IV 05/02/24 13:27 999 mls/hr .Q31M ONE Administration Magnesium Sulfate 2 gm in 50 mls @ 50 mls/hr 05/02/24 15:15 05/02/24 15:26 Magnesium Sulfate 2gm/50ml Premix IV 05/02/24 16:14 50 mls/hr ONCE ONE Administration Iopamidol 80 ml 05/02/24 14:04 05/02/24 14:05 Iopamidol-370 (76%);100ml Bottle IV 05/02/24 14:05 80 ml ONCE ONE Administration Ondansetron HCl 4 mg 05/02/24 15:32 05/02/24 15:46 Ondansetron 4mg/2ml Vial IV 05/02/24 15:33 4 mg ONCE ONE Administration Promethazine HCl 25 mg 05/02/24 12:57 05/02/24 13:10 Promethazine Hcl 25mg/Ml 1ml Vial IV 05/02/24 12:58 25 mg ONCE ONE Administration Sodium Chloride 25 ml 05/02/24 12:57 05/02/24 13:10 Sodium Chloride 0.9% 25ml Bag IV 05/02/24 12:58 25 ml ONCE ONE Administration Sodium Chloride 50 ml 05/02/24 14:04 05/02/24 14:05 0.9 % Sodium Chloride 50 Ml Vial IV 05/02/24 14:05 50 ml ONCE ONE Administration Sodium Chloride 10 ml 05/02/24 14:04 05/02/24 14:05 Sodium Chloride 0.9% 10ml Syr (Rad Only) IV 05/02/24 14:05 10 ml ONCE ONE Administration ORDERS Category Date Time Status CT Venogram head Stat Cat Scan 05/02/24 12:[address] head/brain wo con Stat Cat Scan 05/02/24 12:57 Completed Acetone, Serum (Rapid) Stat Lab 05/02/24 Completed CBC w/Auto Diff [Complete Blood Count Auto Diff] Stat Lab 05/02/24 12:58 Completed CMP [Comprehensive Metabolic Panel] Stat Lab 05/02/24 12:58 Completed HIV (1&2) Antibody Rapid Stat Lab 05/02/24 12:58 Completed Hep C Ab with Reflex to RNA Stat Lab 05/02/24 12:58 Received PT/INR [Prothrombin Time INR] Stat Lab 05/02/24 12:58 Completed Urinalysis and Microscopic Stat Lab 05/02/24 Completed Urine Culture Stat Micro 05/02/24 Received Medical Decision Narrative: In summary, this 23-year-old female with a history of type 1 diabetes, currently 18 weeks , G1, P0 presents to the emergency department today with acute onset holocephalic headache with associated nausea and vomiting since 0330 this morning. On initial evaluation patient is afebrile, hemodynamically stable, nontoxic-appearing, however actively vomiting, GCS 15, no focal neurological deficits. Differential diagnosis includes but is not limited to CVST, SAH, migraine, DKA. Based on these concerns, I ordered CBC, CMP, urinalysis, acetone, PT/INR, CT head, CT venogram head. Patient received Tylenol, Benadryl, Phenergan for treatment. Labs personally reviewed demonstrate normal white blood cell count, INR of 0.86, normal creatinine, glucose of 108, normal anion gap, negative acetone level. CT imaging personally interpreted demonstrates no acute intracranial pathology and no evidence of venous sinus thrombosis. On reassessment patient still complaining of a headache and states that it is not any better than it was when she got here. Still having intermittent vomiting. Administered magnesium and Zofran. At the time of shift change, urinalysis and reevaluation was pending. See transfer of care note for ultimate impression of disposition Melissa: I assumed primary responsibility for this patient after signout from previous physician. On my evaluation, patient able to tolerate p.o. intake, but stating that her headache is still severe, intense, frontal at this point. Still denying vision changes or any other neurologic deficits. Pupils 3 mm and reactive bilaterally. EOMs intact and full, nonpainful. Given patient still having severe headache with negative workup including labs and imaging, OB was contacted and case was discussed. Recommended magnesium level and further migraine cocktail, admit for observation. Reglan and Fioricet were administered. Because patient high risk for clinical decompensation, deemed appropriate for inpatient admission. Results were relayed to patient who voiced understanding and patient was agreeable to inpatient admission and management. Patient was admitted to the hospital for further definitive management. Critical Care <Eb Abbott MD - Last Filed: 05/02/24 16:05> Critical Care Time Critical Care Time: No
--- NOTE | 2024-05-02 12:57 | CT_ITS ---
PROCEDURE INFORMATION: Exam: CTA Head With Contrast, Venography Exam date and time: 05/02/2024 2:03 PM Age: 23 years old Clinical indication: Pain; Headache; Additional info: MENDIOLA, c/f cvst, PT is 19 weeks TECHNIQUE: Imaging protocol: Computed tomography angiography of the head with contrast. Exam focused on the veins. 3D rendering (Not supervised by radiologist): MIP and/or 3D reconstructed images were created by the technologist. Radiation optimization: All CT scans at this facility use at least one of these dose optimization techniques: automated exposure control; mA and/or kV adjustment per patient size (includes targeted exams where dose is matched to clinical indication); or iterative reconstruction. Contrast material: ISOVUE 370; Contrast volume: 80 ml; Contrast route: INTRAVENOUS (IV); COMPARISON: CT HEAD/BRAIN WO CON 05/02/2024 2:03 PM FINDINGS: Superior sagittal sinus: Patent. Straight sinus: Patent. Transverse sinuses: Patent. Sigmoid sinuses: Patent. Internal jugular veins: Limited visualized internal jugular veins are patent. Brain: No definite mass, mass effect, or midline shift. Cerebral ventricles: No ventriculomegaly. Soft tissues: Unremarkable. IMPRESSION: No venous thrombosis.
--- NOTE | 2024-05-02 12:57 | CT_ITS ---
PROCEDURE INFORMATION: Exam: CT Head Without Contrast Exam date and time: 05/02/2024 2:03 PM Age: 23 years old Clinical indication: Pain; Headache; Additional info: MENDIOLA, c/f venous sinus thrombosis, patient is 19 weeks TECHNIQUE: Imaging protocol: Computed tomography of the head without contrast. Radiation optimization: All CT scans at this facility use at least one of these dose optimization techniques: automated exposure control; mA and/or kV adjustment per patient size (includes targeted exams where dose is matched to clinical indication); or iterative reconstruction. COMPARISON: CT HEAD/BRAIN WO CON 05/02/2024 2:03 PM FINDINGS: Brain: Normal. No hemorrhage. Unremarkable white matter. No mass effect. Cerebral ventricles: No ventriculomegaly. Paranasal sinuses: Visualized sinuses are unremarkable. No fluid levels. Mastoid air cells: Visualized mastoid air cells are well aerated. Bones: Unremarkable. No acute fracture. Soft tissues: Unremarkable. IMPRESSION: No acute intracranial abnormality.
[2024-05-02] MEDS: SODIUM CHLORIDE 0.9% 25ML BAG 25 ML IV (13:10)
[2024-05-02] MEDS: diphenhydrAMINE 50MG/ML VIAL 25 MG IV (13:10)
[2024-05-02] MEDS: PROMETHAZINE HCL 25MG/ML 1ML VIAL 25 MG IV (13:10)
[2024-05-02] MEDS: RINGERS SOLUTION,LACTATED 500 ML 999 ML IV (13:10)
[2024-05-02 13:12] LABS: Basophils % 0.3 % (0.1-2.0); Eosinophils % 0.3 % (0.1-12.0); Hematocrit 35.3 % (37.0-47.0); Hemoglobin 11.8 g/dL (12.2-16.2); Lymphocytes # 1.4 K/mm3 (0.7-4.5); Lymphocytes % 14.4 % (10-50); Mean Corpuscular HGB Conc 33.5 g/dL (31.8-35.4); Mean Corpuscular Hemoglobin 23.4 pg (27.0-31.2); Mean Corpuscular Volume 69.9 fl (81-99); Mean Platelet Volume 7.4 fl (7.4-10.4); Monocytes # 0.3 K/mm3 (0.1-1.0); Monocytes % 2.7 % (1.7-9.3); Neutrophils % 82.3 % (37.0-80.0); Platelet Count 266 K/mm3 (142-424); Red Blood Count 5.04 M/mm3 (4.20-5.40); Red Cell Distribution Width 15.6 % (11.5-17.5); White Blood Count 9.7 K/mm3 (4.8-10.8)
[2024-05-02 13:18] LABS: INR 0.86 (0.9-1.1); Prothrombin Time 9.8 seconds (10.1-12.5)
[2024-05-02 13:20] LABS: Alanine Aminotransferase 27 U/L (12-78); Albumin Level 4.2 g/dl (3.5-5.0); Albumin/Globulin Ratio 1.4 (1.1-1.8); Alkaline Phosphatase 70 U/L (38-126); Anion Gap 10.9 mEq/L (5-15); Aspartate Amino Transferase 29 U/L (14-36); Bilirubin,Total 0.5 mg/dl (0.2-1.3); Blood Urea Nitrogen 13 mg/dl (7-17); Calcium 9.3 mg/dl (8.4-10.2); Carbon Dioxide 21 mmol/L (22.0-30.0); Chloride 108 mmol/L (98-107); Creatinine Clearance Estimated 227 mL/min (50-200); Estimated Glomerular Filt Rate 196 ml/min (>60); GFR (African American) 237 ML/MIN (>60); Globulin 3.1 g/dL (1.3-3.2); Glucose 108 mg/dl (74-100); Potassium 3.9 mmoL/L (3.5-5.1); Sodium 136 mmol/L (136-145); Total Protein,Serum 7.3 g/dl (6.3-8.2)
[2024-05-02 13:25] LABS: Acetone, Serum (Rapid) None Detected (None Detect)
--- NOTE | 2024-05-02 13:45 | PC.NURSE ---
I rounded on the pt, she was sleeping when i went in. pt is still unable to provide a urine sample. no needs voiced, call obrien in reach.
[2024-05-02 13:55] LABS: HIV (1&2) Antibody Rapid NONREACTIVE (NONREACTIVE)
[2024-05-02] MEDS: IOPAMIDOL-370 (76%);100ML BOTTLE 80 ML IV (14:05)
[2024-05-02] MEDS: SODIUM CHLORIDE 0.9% 10ML SYR (RAD ONLY) 10 ML IV (14:05)
[2024-05-02] MEDS: 0.9 % SODIUM CHLORIDE 50 ML VIAL IV (14:05)
--- NOTE | 2024-05-02 14:07 | PC.NURSE ---
PT RETURNED FROM CT
[2024-05-02] MEDS: ACETAMINOPHEN 500MG TAB 1000 MG PO ×2 (15:26→21:50)
[2024-05-02] MEDS: MAGNESIUM SULFATE IN WATER 2 GM/50 ML PIGGYBACK IV (15:26)
--- NOTE | 2024-05-02 15:26 | PC.NURSE ---
pt was given chips and soda by kayleen claudio
--- NOTE | 2024-05-02 15:30 | PC.NURSE ---
I rounded on the pt, she complains of her nausea returning. MD is going to order another medication for nausea. no needs voiced, call obrien in reach.
[2024-05-02] MEDS: ONDANSETRON 4MG/2ML VIAL 4 MG IV (15:46)
[2024-05-02 16:13] LABS: Microscopic, Urine URINE MICROSCOPIC (MICROSCOPIC)
[2024-05-02 16:15] LABS: Appearance,Urine CLEAR (Clear); Bilirubin,Urine Negative (Negative); Blood, Urine Negative (Negative); Color,Urine YELLOW (Yellow); Glucose,Urine (UA) Negative (Negative); Ketones,Urine 1+ (Negative); Leukocyte Esterase,Urine Negative (Negative); Nitrate,Urine Negative (Negative); PH,Urine 6.5 (5.0-8.5); Protein,Urine Negative (Negative); Urobilinogen,Urine 0.2 EU/dl (0.2)
[2024-05-02 16:33] LABS: WBC,Urine 50-100 #/hpf (0-3)
[2024-05-02 16:34] LABS: Bacteria,Urine Trace /lpf; Yeast,Urine Occasional /lpf
--- NOTE | 2024-05-02 16:49 | PC.NURSE ---
CREDIT INVESTIGATOR NOTIFIED OF ADMISSION
--- NOTE | 2024-05-02 16:59 | PC.NURSE ---
pt glucose is 161
--- NOTE | 2024-05-02 16:59 | PC.NURSE ---
pt was given a nuti gain bar no other needs at this time
[2024-05-02] MEDS: BUTALB/ACETAMINOPHEN/CAFFEINE 50MG/325MG/40MG TAB 1 EACH PO (17:03)
[2024-05-02] MEDS: METOCLOPRAMIDE HCL 10MG/2ML VIAL 10 MG IVP (17:03)
[2024-05-02 17:05] LABS: Magnesium 1.5 mg/dl (1.6-2.3)
--- NOTE | 2024-05-02 17:08 | PC.NURSE ---
at bedside at this time.
--- NOTE | 2024-05-02 17:10 | PC.NURSE ---
DR HEADLEY AT BEDSIDE
--- NOTE | 2024-05-02 17:11 | PC.NURSE ---
Dr. Valencia states she would prefer the pt keep on her insulin pump and glucose monitor as she would at home.
--- NOTE | 2024-05-02 17:18 | PC.NURSE ---
Report called to Anahi CLARKE
--- NOTE | 2024-05-02 17:32 | EXP.HP ---
History of Present Illness *Admission Date: 05/02/24 *Reason for visit:: Head and vomiting *History of present illness: Jodee Au is a 23-year-old at 19 weeks and 1days gestation who presented to the ED today for a severe persistent headache as well as emesis. She receives care with Dr. León and is also followed by MFM at [facility] [place] [place]. Her is complicated by type 1 diabetes and hypothyroidism. Patient states that her blood sugar has been elevated recently Patient reports this as the worst headache she has ever had It was occipital and has since rotated to be fundal. She denies a history of migraines. Denies being sick. Denies fevers. Her blood pressure is well-controlled. Her labs are appropriate. Evaluation emergency department included a CT of her head and a CT venogram which were both benign. She is also had a migraine cocktail and reports only slight improvement A+, antibody negative, rubella immune, hepatitis B negative, hepatitis C negative, RPR negative, HIV negative [facility] Disclaimer: The information contained in this section may have been updated after the patient was seen, as this information can be updated by other users. Medical History Nausea and vomiting of , antepartum Hypothyroidism complicating Type 1 diabetes mellitus complicating , antepartum Hypothyroidism Diabetes Surgical History (Reviewed 04/25/24 @ 11: by DEREK Nichole) No history of previous surgery Family History Other No significant family history Social History Smoking Status: Never smoker alcohol intake: never current occupational status: employed Travel in the last 8 weeks: None Other Medical History Have you received the Flu Vaccine for this season: No Have you received the Pneumonia Vaccine: No Review of Systems Review of Systems Review of systems (narrative): Review of Systems Constitutional: Denies fever, chills, and sweats Eyes: Denies vision change/ pain Respiratory: Denies cough and shortness of breath Cardiovascular: Denies chest pain and lightheadedness Gastrointestinal: denies abdominal pain. Denies nausea, vomiting. Genitourinary: Denies dysuria and incontinence Musculoskeletal: Denies shoulder pain and back pain Neurological: Denies change in speech or headaches Meds Home Medications and Allergies Home Medications ?Medication ?Instructions ?Recorded ?Confirmed ?Type subcutaneous insulin pump #1 ea 11/23/18 05/02/24 History insulin lispro 100 unit/mL See Rx Instructions .Route .COMPLEX 04/21/24 05/02/24 History subcutaneous solution levothyroxine 125 mcg tablet 125 mcg PO DAILY 05/02/24 05/02/24 History ondansetron 4 mg disintegrating 4 mg PO NEEDED PRN Nausea 05/02/24 05/02/24 History tablet ondansetron 4 mg disintegrating 4 mg PO NEEDED PRN Nausea And 05/02/24 05/02/24 History tablet Vomiting promethazine 12.5 mg tablet 12.5 mg PO NEEDED PRN Morning 05/02/24 05/02/24 History Sickness New Prescriptions to Start Prescriptions: Allergies Allergy/AdvReac Type Severity Reaction Status Date / Time No Known Allergies Allergy Verified 05/02/24 13:04 Exam Data for Last 24 hours Vital signs and Labs for Last 24 Hours: Temp Pulse Resp BP Pulse Ox O2 Del Method 97.9 F 82 16 122/70 98 Room Air 05/02/24 17:20 05/02/24 17:20 05/02/24 17:20 05/02/24 17:20 05/02/24 15:30 05/02/24 17:20 Laboratory Results - last 24 hr 05/02/24 12:58: WBC 9.7, RBC 5.04, Hgb 11.8 L, Hct 35.3 L, MCV 69.9 L, MCH 23.4 L, MCHC 33.5, RDW 15.6, Plt Count 266, MPV 7.4, Neut % (Auto) 82.3 H, Lymph % (Auto) 14.4, [place]aton % (Auto) 2.7, Eos % (Auto) 0.3, Baso % (Auto) 0.3, Neut # (Auto) 8.0 H, Lymph # (Auto) 1.4, Eaton # (Auto) 0.3, Eos # (Auto) 0.0, Baso # (Auto) 0.0, PT 9.8 L, INR 0.86 L, Sodium 136, Potassium 3.9, Chloride 108 H, Carbon Dioxide 21 L, Anion Gap 10.9, BUN 13, Creatinine 0.40 L, Estimated Creat Clear 227, Estimated GFR 196, Est GFR ( Amer) 237, Glucose 108 H, Calcium 9.3, Magnesium 1.5 L, Total Bilirubin 0.5, AST 29, ALT 27, Alkaline Phosphatase 70, Total Protein 7.3, Albumin 4.2, Globulin 3.1, Albumin/Globulin Ratio 1.4, HIV 1&2 Antibody Rapid Nonreactive 05/02/24 : Urine Color Yellow, Urine Appearance Clear, Urine pH 6.5, Ur Specific Milton 1.010, Urine Protein Negative, Urine Glucose (UA) Negative, Urine Ketones 1+, Urine Blood Negative, Urine Nitrate Negative, Urine Bilirubin Negative, Urine Urobilinogen 0.2, Ur Leukocyte Esterase Negative, Urine RBC 3-5, Urine WBC 50-100, Ur Squamous Epith Cells 10-20, Urine Bacteria Trace, Urine Yeast Occasional, Acetone Level None detected I & O for Last 24 hours: Intake & Output 04/29/24 04/30/24 05/01/24 05/02/24 23:59 23:59 23:59 23:59 Weight 146 lb Narrative: General: patient is alert oriented in no acute distress and responds appropriately to questions. In visible discomfort HEENT: NCAT, EOMI, moist mucous membranes, neck supple with full ROM Cardiovascular: RRR +S1/S2, no murmurs or rubs Pulmonary: Clear to auscultation bilaterally, nonlabored breathing, symmetric chest rise Abdominal: Gravid abdomen appropriate for gestation. No guarding, rebound, or tenderness noted. Extremities: no edema, no tenderness or cyanosis noted Skin: Normal turgor, intact, warm. Negative for erythema, pallor, petechia, or lesions Neurologic: Negative for sensory or motor deficit Psychiatric: Normal affect, normal thought process, good judgment and insight, no depression or anxious mood appreciated. *Routine HEENT Exam Head: Present normocephalic and atraumatic Eye: Present EOMI, PERRL and normal accommodation; Absent conjunctival icterus, scleral injection, nystagmus or exophthalmos ENT: Present mucous membranes moist *Routine Respiratory Exam Respiratory: Present CTA bilaterally, normal respiratory effort, able to speak in complete sentences and symmetric chest movement; Absent accessory muscle use, decreased breath sounds, rales, respiratory distress, wheezes, distant breath sounds or diminished air movement *Routine Cardiovascular Exam Cardiovascular: Present RRR, Normal S1 and Normal S2; Absent murmur or gallop *Routine Abdominal Exam Abdominal: Present soft and normoactive bowel sounds; Absent tenderness, distended, rebound or guarding *Routine Rectal Exam Rectal:: deferred *Routine Genitalia Exam Genitalia:: normal female Assessment and Plan *Assessment and plan (1) Headache: Status: Acute Qualifiers: Headache type: other headache syndrome Qualified Code(s): G44.89 - Other headache syndrome Category: Medical Code(s): R51.9 - Headache, unspecified (2) Nausea and vomiting of , antepartum: Status: Acute Category: Medical Code(s): O21.9 - Vomiting of , unspecified (3) Hypothyroidism complicating : Status: Acute Qualifiers: Trimester: first trimester Qualified Code(s): O99.281 - Endocrine, nutritional and metabolic diseases complicating , first trimester; E03.9 - Hypothyroidism, unspecified Category: Medical Code(s): O99.280 - Endocrine, nutritional and metabolic diseases complicating , unspecified trimester; E03.9 - Hypothyroidism, unspecified (4) Type 1 diabetes mellitus complicating , antepartum: Status: Acute Category: Medical Code(s): O24.019 - Pre-existing type 1 diabetes mellitus, in , unspecified trimester Plan Decision was made to admit the patient for further evaluation. Ensure adequate migraine management. Follow-up glucose control. Ensure tolerating p.o. without nausea or vomiting. The patient voiced understanding and was agreeable to the plan Continue baby aspirin Consider oxycodone or morphine for pain management Patient has an insulin pump and his CGM she will use these with her settings that have been determined by [facility] during her hospital stay Doppler every 12 hours Fioricet administered at 1703 Reglan 10 mg given at 1703 Zofran 4 mg given at 1546 Acetaminophen 1000 mg p.o. given at 1526 2 g of magnesium administered at 1526 25 mg of IV promethazine and 25 mg of IV Benadryl given at 1310
[2024-05-03] MEDS: ACETAMINOPHEN 500MG TAB 1000 MG PO (05:41)
[2024-05-03 05:52] VITALS: BP 115/68; PULSE 83; RESP 17; TEMP 36.7; O2SAT 98
[2024-05-03 07:45] VITALS: BP 120/67; PULSE 95; RESP 18; TEMP 36.6; O2SAT 97
[2024-05-03] MEDS: OXYCODONE 5MG IMMEDIATE RELEASE TABLET 5 MG PO (08:33)
[2024-05-03] MEDS: PROCHLORPERAZINE 10MG TABLET 10 MG PO (08:39)
[2024-05-03 09:20] LABS: HCV Ab Non Reactive (Non Reactive)
[2024-05-03] MEDS: ONDANSETRON 4MG/2ML VIAL 8 MG IV (12:20)
[2024-05-03] MEDS: IBUPROFEN 400 MG TABLET 800 MG PO (12:53)
[2024-05-03] MEDS: METOCLOPRAMIDE HCL 10MG/2ML VIAL 10 MG IVP (12:54)
[2024-05-03] MEDS: diphenhydrAMINE 50MG/ML VIAL 25 MG IV (12:54)
[2024-05-03] MEDS: DEXAMETHASONE 4MG/ML 1ML VIAL 10 MG IV (12:55)
--- NOTE | 2024-05-03 16:59 | P.DS_ITS ---
General Admission date:: 05/02/24 Discharge date: 05/03/24 HPI HPI HPI: Jodee Au is a 23-year-old at 19 weeks and 1days gestation who presented to the ED today for a severe persistent headache as well as emesis. She receives care with Dr. León and is also followed by MFM at [facility]. Her is complicated by type 1 diabetes and hypothyroidism. Patient states that her blood sugar has been elevated recently Patient reports this as the worst headache she has ever had It was occipital and has since rotated to be fundal. She denies a history of migraines. Denies being sick. Denies fevers. Her blood pressure is well- controlled. Her labs are appropriate. Evaluation emergency department included a CT of her head and a CT venogram which were both benign. She is also had a migraine cocktail and reports only slight improvement A+, antibody negative, rubella immune, hepatitis B negative, hepatitis C negative, RPR negative, HIV negative Hospital Course Hospital Course Hospital Course: She was seen initially Emergency Department and had a CT of her head as well as a CT venogram that was negative. She received a couple of doses of migraine cocktail and this seems to have helped. She did receive a single dose of ibuprofen. She is doing better and will be discharged home to follow-up with Dr. León. Her condition on discharge is stable and improved. Exam Data for Last 24 hours Vital signs and Labs for Last 24 Hours: Temp Pulse Resp BP Pulse Ox O2 Del Method 97.9 F 95 H 18 120/67 97 Room Air 05/03/24 07:45 05/03/24 07:45 05/03/24 07:45 05/03/24 07:45 05/03/24 07:45 05/03/24 07:45 Laboratory Results - last 24 hr 05/02/24 12:58: Magnesium 1.5 L, Hepatitis C Antibody Non reactive I & O for Last 24 hours: Intake & Output 05/01/24 05/02/24 05/03/24 05/04/24 11:59 11:59 11:59 11:59 Weight 146 lb Constitutional Constitutional: no acute distress Results Data Completed and Pending Labs on day of discharge: Labs from last 24 hours 05/02/24 12:58 Magnesium 1.5 L Hepatitis C Antibody Non reactive DS: Diagnosis Discharge Diagnosis (1) Headache: Status: Acute Code(s): R51.9 - Headache, unspecified Qualifiers: Headache type: other headache syndrome Qualified Code(s): G44.89 - Other headache syndrome (2) Nausea and vomiting of , antepartum: Status: Acute Code(s): O21.9 - Vomiting of , unspecified (3) Hypothyroidism complicating : Status: Acute Code(s): O99.280 - Endocrine, nutritional and metabolic diseases complicating , unspecified trimester; E03.9 - Hypothyroidism, unspecified Qualifiers: Trimester: first trimester Qualified Code(s): O99.281 - Endocrine, nutritional and metabolic diseases complicating , first trimester; E03.9 - Hypothyroidism, unspecified (4) Type 1 diabetes mellitus complicating , antepartum: Status: Acute Code(s): O24.019 - Pre-existing type 1 diabetes mellitus, in , unspecified trimester Meds Home Medications and Allergies Home Medications ?Medication ?Instructions ?Recorded ?Confirmed ?Type subcutaneous insulin pump #1 ea 11/23/18 05/02/24 History insulin lispro 100 unit/mL 0 unit SQ DIRECTED 04/21/24 05/03/24 History subcutaneous solution aspirin 81 mg chewable tablet 81 mg PO DAILY 05/02/24 05/02/24 History levothyroxine 125 mcg tablet 125 mcg PO HS 05/02/24 05/03/24 History New Prescriptions to Start Prescriptions: Allergies Allergy/AdvReac Type Severity Reaction Status Date / Time No Known Allergies Allergy Verified 05/02/24 13:04 Discharge Plan Disposition Patient Disposition: Home, Self-Care Follow up Plan Follow up with: Lesly Lóen DO [Staff Physician] - Enter time for follow up Prescriptions/Medication Reconciliation: Continued (DME) subcutaneous insulin pump Misc See Dose Instructions .ROUTE .MEDSUPPLY Qty: 1 Dose Instruction: As directed Rx Instructions: As directed insulin lispro 100 unit/mL solution 0 unit SQ DIRECTED Patient Comments: USE DIRECTED-UP TO 100 UNITS DAILY Rx Instructions: DIRECTED levothyroxine 125 mcg tablet 125 mcg PO HS aspirin 81 mg Tablet,Chewable 81 mg PO DAILY Problem Reconciliation Problems Reviewed?: Yes Patient Discharge Instructions ACTIVITY: Continue current activity DIET: diabetic diet Print Language: Lao Providers Primary Care Provider: Provider,Referral Admit Provider: Lynn Valencia Attending Provider: Lynn Valencia
== END 2024-05-03 17:15 | disposition home or self-care (01) ==
LOC: ER 15:55 → OB 17:35
PROVIDERS: Student in an Organized Health Care Education/Training Program; Admitting Provider Obstetrics & Gynecology; Emergency Provider Emergency Medicine; Visit Provider Obstetrics & Gynecology
DX: O24.012 Pre-existing type 1 diabetes mellitus, in pregnancy, second trimester (principal); O99.282 Endocrine, nutritional and metabolic diseases complicating pregnancy, second trimester; O21.8 Other vomiting complicating pregnancy; E03.9 Hypothyroidism, unspecified; G44.89 Other headache syndrome; Z3A.19 19 weeks gestation of pregnancy; Z79.4 Long term (current) use of insulin
CPT/HCPCS: 70450; 70496; 80053; 81001; 82009; 83735; 85025; 85610; 86803; 87086; 87389; 99285; G0378; J1100; J1200; J2405; J2550; J2765; J3475; J7120; Q0164; Q9967

== ENCOUNTER 2024-06-14 15:27 | Outpatient (CLI) | payer MEDICAID, SELFPAY ==
[2024-06-14 15:55] VITALS: BP 129/73; PULSE 95; RESP 16; TEMP 36.6; O2SAT 98; BMI 28.5
[2024-06-14 16:11] LABS: POC Glucose,Bedside 154 (70-110)
[2024-06-14 17:20] LABS: Basophils % 0.4 % (0.1-2.0); Eosinophils % 0.1 % (0.1-12.0); Hemoglobin 10.7 g/dL (12.2-16.2); Lymphocytes # 1.2 K/mm3 (0.7-4.5); Lymphocytes % 14.4 % (10-50); Mean Corpuscular HGB Conc 32.4 g/dL (31.8-35.4); Mean Corpuscular Hemoglobin 22.8 pg (27.0-31.2); Mean Corpuscular Volume 70.3 fl (81-99); Monocytes # 0.3 K/mm3 (0.1-1.0); Monocytes % 3.8 % (1.7-9.3); Neutrophils # 6.9 K/mm3 (1.8-7.8); Neutrophils % 81.3 % (37.0-80.0); Platelet Count 264 K/mm3 (142-424); Red Blood Count 4.69 M/mm3 (4.20-5.40); Red Cell Distribution Width 16.9 % (11.5-17.5); White Blood Count 8.5 K/mm3 (4.8-10.8)
[2024-06-14 17:27] LABS: Chloride 110 mmol/L (98-107)
[2024-06-14 17:28] LABS: Albumin Level 4.1 g/dl (3.5-5.0); Potassium 4.1 mmoL/L (3.5-5.1); Sodium 133 mmol/L (136-145)
[2024-06-14 17:29] LABS: Appearance,Urine CLEAR (Clear); Blood, Urine Negative (Negative); Color,Urine YELLOW (Yellow); Glucose,Urine (UA) Negative (Negative); Ketones,Urine 3+ (Negative); Leukocyte Esterase,Urine Negative (Negative); Microscopic, Urine URINE MICROSCOPIC (MICROSCOPIC); Nitrate,Urine Negative (Negative); Protein,Urine 1+ (Negative); Specific Gravity, Urine >= 1.030 (1.005-1.030); Urobilinogen,Urine 0.2 EU/dl (0.2)
[2024-06-14 17:30] LABS: Blood Urea Nitrogen 10 mg/dl (7-17); Creatinine Clearance Estimated 188 mL/min (50-200); Estimated Glomerular Filt Rate 152 ml/min (>60); GFR (African American) 183 ML/MIN (>60)
[2024-06-14 17:31] LABS: Alanine Aminotransferase 19 U/L (12-78); Albumin/Globulin Ratio 1.4 (1.1-1.8); Alkaline Phosphatase 89 U/L (38-126); Anion Gap 15.1 mEq/L (5-15); Aspartate Amino Transferase 27 U/L (14-36); Bilirubin,Total 0.7 mg/dl (0.2-1.3); Calcium 9.3 mg/dl (8.4-10.2); Carbon Dioxide 12 mmol/L (22.0-30.0); Globulin 2.9 g/dL (1.3-3.2); Glucose 141 mg/dl (74-100); Magnesium 1.6 mg/dl (1.6-2.3)
[2024-06-14 17:40] LABS: Bilirubin,Urine Negative (Negative)
[2024-06-14 17:41] LABS: Amphetamine/Metha Screen,Urine Negative ng/ml (<1000)
[2024-06-14 17:42] LABS: Barbiturates Screen,Urine Negative ng/ml (<200)
[2024-06-14 17:43] LABS: Benzodiazepines Screen,Urine Negative ng/ml (<200); Cannabinoid Screen,Urine Negative ng/ml (<50)
[2024-06-14 17:44] LABS: Cocaine Screen,Urine Negative ng/ml (<300)
[2024-06-14 17:45] LABS: Methadone Screen,Urine Negative ng/ml (<300); Opiate Screen,Urine Negative ng/ml (<300)
[2024-06-14 17:46] LABS: Phencyclidine Screen,Urine Negative ng/ml (<25)
[2024-06-14 18:02] LABS: Bacteria,Urine 3+ /lpf; Mucus,Urine 2+ /lpf; WBC,Urine 20-50 #/hpf (0-3)
== END 2024-06-14 18:06 | disposition home or self-care (01) ==
LOC: OBOUT 15:30 → OB 15:38
PROVIDERS: Visit Provider Obstetrics & Gynecology
DX: O24.012 Pre-existing type 1 diabetes mellitus, in pregnancy, second trimester (principal); Z3A.25 25 weeks gestation of pregnancy
CPT/HCPCS: 80053; 80307; 81001; 82962; 83735; 85025; 87086; G0463

== ENCOUNTER 2024-07-01 07:13 | Outpatient (CLI) | payer MEDICAID, SELFPAY ==
[2024-07-01 07:30] VITALS: BP 110/66; PULSE 110; RESP 18; TEMP 37.1; O2SAT 98; BMI 28.5
[2024-07-01 07:41] VITALS: BMI 28.5
[2024-07-01] MEDS: 0.9 % SODIUM CHLORIDE 1000ML 1,000 ML 999 ML IV ×2 (07:45→08:48)
[2024-07-01 08:03] LABS: Adenovirus,PCR Not Detected (NotDetected); Bordetella Pertussis Not Detected (NotDetected); Chlamydophila Pneumoniae, PCR Not Detected (NotDetected); Coronavirus 229E Not Detected (NotDetected); Coronavirus NL63 Not Detected (NotDetected); Coronavirus OC43 Not Detected (NotDetected); Coronovirus HKU1,PCR Not Detected (NotDetected); Human Metapneumovirus Not Detected (NotDetected); Influenza A, PCR Not Detected (NotDetected); Influenza AH1, 2009 Not Detected (NotDetected); Influenza AH1, PCR Not Detected (NotDetected); Influenza AH3,PCR Not Detected (NotDetected); Influenza B, PCR Not Detected (NotDetected); Mycoplasma Pneumoniae, PCR Not Detected (NotDetected); Parainfluenza 1, PCR Not Detected (NotDetected); Parainfluenza 2, PCR Not Detected (NotDetected); Parainfluenza 3, PCR Not Detected (NotDetected); Parainfluenza 4, PCR Not Detected (NotDetected); Respiratory Syncytial Virus Not Detected (NotDetected); Rhinovirus/Enterovirus Not Detected (NotDetected)
[2024-07-01 08:22] LABS: Hematocrit 29.9 % (37.0-47.0); Mean Corpuscular HGB Conc 30.1 g/dL (31.8-35.4); Mean Corpuscular Hemoglobin 20.9 pg (27.0-31.2); Mean Corpuscular Volume 69.5 fl (81-99); White Blood Count 8.8 K/mm3 (4.8-10.8)
[2024-07-01 08:23] LABS: Basophils % 0.2 % (0.1-2.0); Lymphocytes # 0.6 K/mm3 (0.7-4.5); Lymphocytes % 6.8 % (10-50); MANUAL DIFFERENTIAL MANUAL DIFFERENTIAL (MANUAL DIFF); Mean Platelet Volume 11.1 fl (7.4-10.4); Monocytes # 0.5 K/mm3 (0.1-1.0); Monocytes % 6.1 % (1.7-9.3); Neutrophils # 7.6 K/mm3 (1.8-7.8); Neutrophils % 86.4 % (37.0-80.0); Platelet Count 182 K/mm3 (142-424); Red Cell Distribution Width 15.6 % (11.5-17.5)
[2024-07-01 08:28] LABS: Albumin Level 3.7 g/dl (3.5-5.0); Chloride 106 mmol/L (98-107)
[2024-07-01 08:29] LABS: Potassium 3.4 mmoL/L (3.5-5.1); Sodium 128 mmol/L (136-145)
[2024-07-01 08:31] LABS: Alanine Aminotransferase 19 U/L (12-78); Albumin/Globulin Ratio 1.3 (1.1-1.8); Alkaline Phosphatase 93 U/L (38-126); Anion Gap 9.4 mEq/L (5-15); Aspartate Amino Transferase 32 U/L (14-36); Bilirubin,Total 0.9 mg/dl (0.2-1.3); Blood Urea Nitrogen 9 mg/dl (7-17); Carbon Dioxide 16 mmol/L (22.0-30.0); Creatinine Clearance Estimated 156 mL/min (50-200); Estimated Glomerular Filt Rate 123 ml/min (>60); GFR (African American) 149 ML/MIN (>60); Globulin 2.9 g/dL (1.3-3.2); Total Protein,Serum 6.6 g/dl (6.3-8.2)
[2024-07-01 08:32] LABS: Calcium 8.6 mg/dl (8.4-10.2); Glucose 241 mg/dl (74-100)
[2024-07-01] MEDS: ACETAMINOPHEN 500MG TAB 1000 MG PO (08:48)
[2024-07-01] MEDS: ONDANSETRON 4MG/2ML VIAL 4 MG IV (08:49)
[2024-07-01 09:33] LABS: Coronavirus 19, PCR Detected (NotDetected)
[2024-07-01 09:49] LABS: Microscopic, Urine URINE MICROSCOPIC (MICROSCOPIC)
[2024-07-01 09:50] LABS: Hypochromasia 2+; Lymphocytes % 5 % (10-50); Microcytosis 2+; Monocytes % 1 % (2-9); Neutrophils % 94 % (42-76); Platelet Estimate Normal; Total Cells Counted 100
--- NOTE | 2024-07-01 10:11 | EXP.ACUTE.PN ---
Subjective *Date: 07/01/24 *Time: 10:11 Interval history: She is a 23-year-old 1 para 0 at 28 weeks gestational age. She complains of cough and feeling unwell. She had a fever at home. Her COVID test here is positive. She is also an insulin-dependent diabetic and has a pump. Her sugar was in the 260 range. She was dehydrated. Medical Exam Vital signs and Labs for Last 24 Hours: Vital Signs Temp Pulse Resp BP Pulse Ox O2 Del Method 07/01/24 07:30 98.8 F 110 H 18 110/66 98 Room Air Intake and Output 06/30/24 07/01/24 07/01/24 19:59 03:59 11:59 Other: Weight 151 lb Patient Weight 07/01/24 11:59 Weight 151 lb Laboratory Results - last 24 hr 07/01/24 07:43: WBC 8.8, RBC 4.30, Hgb 9.0 L, Hct 29.9 L, MCV 69.5 L, MCH 20.9 L, MCHC 30.1 L, RDW 15.6, Plt Count 182, MPV 11.1 H, Neut % (Auto) 86.4 H, Lymph % (Auto) 6.8 L, Petroleum % (Auto) 6.1, Eos % (Auto) 0.0 L, Baso % (Auto) 0.2, Neut # (Auto) 7.6, Lymph # (Auto) 0.6 L, [place] # (Auto) 0.5, Eos # (Auto) 0.0, Baso # (Auto) 0.0, Total Counted 100, Neutrophils % (Manual) 94 H, Lymphocytes % (Manual) 5 L, Monocytes % (Manual) 1 L, Platelet Estimate Normal, Hypochromasia 2+, Microcytosis 2+, Sodium 128 L, Potassium 3.4 L, Chloride 106, Carbon Dioxide 16 L, Anion Gap 9.4, BUN 9, Creatinine 0.60, Estimated Creat Clear 156, Estimated GFR 123, Est GFR ( Amer) 149, Glucose 241 H, Calcium 8.6, Total Bilirubin 0.9, AST 32, ALT 19, Alkaline Phosphatase 93, Total Protein 6.6, Albumin 3.7, Globulin 2.9, Albumin/Globulin Ratio 1.3 07/01/24 07:49: Chlamy pneumoniae PCR Not detected, Adenovirus (PCR) Not detected, B. pertussis DNA (PCR) Not detected, Coronavirus OC43 (PCR) Not detected, Coronavirus HKU1 (PCR) Not detected, Coronavirus 229E (PCR) Not detected, SARS-CoV-2 (PCR) Detected A, Coronavirus NL63 (PCR) Not detected, Human Metapneumovir PCR Not detected, Influenza A (H1) PCR Not detected, Influ A (H1N1/09) PCR Not detected, Influenza A (H3) PCR Not detected, Influenza Type A (PCR) Not detected, Influenza Type B (PCR) Not detected, M. pneumoniae (PCR) Not detected, Parainfluenza 1 (PCR) Not detected, Parainfluenza 2 (PCR) Not detected, Parainfluenza 3 (PCR) Not detected, Parainfluenza 4 (PCR) Not detected, RSV (PCR) Not detected, Entero/Rhino (PCR) Not detected I & O for Labs for Last 24 Hours: Intake & Output 06/28/24 06/29/24 06/30/24 07/01/24 11:59 11:59 11:59 11:59 Weight 151 lb Head: Present atraumatic Neck: Present normal inspection Respiratory: Present normal respiratory effort; Absent accessory muscle use Assessment and Plan *Assessment and plan (1) Type 1 diabetes mellitus complicating , antepartum: Status: Acute Category: Medical Code(s): O24.019 - Pre-existing type 1 diabetes mellitus, in , unspecified trimester (2) Hypothyroidism complicating : Status: Acute Qualifiers: Trimester: first trimester Qualified Code(s): O99.281 - Endocrine, nutritional and metabolic diseases complicating , first trimester; E03.9 - Hypothyroidism, unspecified Category: Medical Code(s): O99.280 - Endocrine, nutritional and metabolic diseases complicating , unspecified trimester; E03.9 - Hypothyroidism, unspecified (3) Anemia affecting : Status: Acute Qualifiers: Trimester: third trimester Qualified Code(s): O99.013 - Anemia complicating , third trimester Category: Medical Code(s): O99.019 - Anemia complicating , unspecified trimester (4) COVID-19 affecting , antepartum: Status: Acute Category: Medical Code(s): O98.519 - Other viral diseases complicating , unspecified trimester; U07.1 - COVID-19 Plan She had a CBC that showed she had anemia. Electrolytes were normal. Her sugars are elevated. She was dehydrated and has received 2 L of normal saline. She had a bit of nausea and received a single dose of Zofran. She is anemic and we will start her on iron tablets. She continues with her vitamins. She we will need an appointment in the next couple of weeks. She has not been seen since June 20. She will follow-up with Dr. León.
[2024-07-01 10:19] LABS: Appearance,Urine CLEAR (Clear); Bilirubin,Urine Negative (Negative); Blood, Urine Negative (Negative); Color,Urine YELLOW (Yellow); Glucose,Urine (UA) 1+ (Negative); Ketones,Urine 3+ (Negative); Leukocyte Esterase,Urine Negative (Negative); Nitrate,Urine Negative (Negative); Protein,Urine TRACE (Negative); Specific Gravity, Urine >= 1.030 (1.005-1.030); Urobilinogen,Urine 0.2 EU/dl (0.2)
[2024-07-01 10:41] LABS: Barbiturates Screen,Urine Negative ng/ml (<200); Benzodiazepines Screen,Urine Negative ng/ml (<200)
[2024-07-01 10:42] LABS: Amphetamine/Metha Screen,Urine Negative ng/ml (<1000)
[2024-07-01 10:43] LABS: Cannabinoid Screen,Urine Negative ng/ml (<50); Cocaine Screen,Urine Negative ng/ml (<300)
[2024-07-01 10:44] LABS: Methadone Screen,Urine Negative ng/ml (<300)
[2024-07-01 10:45] LABS: Opiate Screen,Urine Negative ng/ml (<300); Phencyclidine Screen,Urine Negative ng/ml (<25)
[2024-07-01 11:14] LABS: Bacteria,Urine 3+ /lpf; Squamous Epithelial Cell,Urine 20-50 #/hpf (0-5)
== END 2024-07-01 10:30 | disposition home or self-care (01) ==
LOC: OBOUT 07:16 → OB 07:17
PROVIDERS: Visit Provider Nurse Practitioner Obstetrics & Gynecology
DX: O24.012 Pre-existing type 1 diabetes mellitus, in pregnancy, second trimester (principal); Z3A.27 27 weeks gestation of pregnancy; O99.282 Endocrine, nutritional and metabolic diseases complicating pregnancy, second trimester; E03.9 Hypothyroidism, unspecified; O99.012 Anemia complicating pregnancy, second trimester; O98.512 Other viral diseases complicating pregnancy, second trimester; U07.1 COVID-19; Z79.4 Long term (current) use of insulin
CPT/HCPCS: 80053; 80307; 81001; 85007; 85025; 85027; 87086; 87088; 87186; 87633; G0463; J2405; J7030

== ENCOUNTER 2024-07-11 10:20 | Outpatient (CLI) | payer MEDICAID, SELFPAY ==
[2024-07-11 12:27] LABS: Thyroid Stimulating Hormone 5.13 uIU/mL (0.465-4.68)
[2024-07-11 17:50] LABS: RPR W/RFX Titers Nonreactive (Nonreactive)
== END 2024-07-11 23:59 | disposition home or self-care (01) ==
LOC: LAB 10:21
PROVIDERS: Visit Provider Obstetrics & Gynecology
DX: Z34.90 Encounter for supervision of normal pregnancy, unspecified, unspecified trimester (principal)
CPT/HCPCS: 36415; 84443; 86592

== ENCOUNTER 2025-06-07 21:27 | Emergency (ER) | payer MEDICAID, SELFPAY ==
--- OUTSIDE RECORDS SUMMARY | 2013-10-05 11:30 | XMS_ITS | Continuity of Care Document ---
Author Organization [facility] Address [address] [place] [address] Phone Care Team Providers Care Home Planning Consultant Salesperson Name Role Phone Adriana Murray APRN Unavailable Unavailable Medications Medication Instructions Dosage Dose Quantity Effective Dates (start - stop) Status Indication Fill Status Comments diphenhydram ine 25 mg tablet take 1 tablet by oral route every 4 - 6 hours as needed 25 MG 1 tablet 4 - Active permethrin 5 % topical cream apply by topical route (thoroughly massage into skin from head to soles of feet) once leave on for 8-14 hr, then remove by thorough washing 4 - Active Procedures Procedure Date OFFICE/OUTPATIENT VISIT, EST Advance Directives Directive Yes / No Effective Date File Name No Information Encounters Encounter Description Practice Location Reason(s) For Visit Diagnoses Date Provider Encounter Disposition OFFICE/OUTPAT IENT VISIT, EST [facility], [address] [place], [address], tel:[phone] [facility] rash (chief complaint) Scabies 4 Trevor Wright. [address], [place], [address]. tel:[phone] Family History Family Member Type Diagnosis Age At Onset No Information Payers Payer name Insurance type Identifiers Authorization(s) Com deangelo Penny [employer] Member ID: [id number] Name: Coverage Status Eligibility Check on: UnknownRelationship to Subscriber: parentPayer Address: [id number], [place], [place], [address] Phone: Social History Type Description Quantity Date Captured Comments Sex Female Smoking Status No Information Current Gender Female (finding) Vital Signs Date / Time: Height Weight BMI Pulse Rate Blood Pressure Temperature Respiratory Rate Body Surface Area Head Circumference Head Circ. Percentile Wt./Brandon. Percentile BMI percentile Pulse Ox Inhaled Ox 4:46 PM 61.00 in 114.00 lbs 21.5 4 kg/m eter (2) 90 /min 1113/66 mm[Hg] 98.00 F 20 /min 74 Chief Complaint And Reason For Visit From encounter dated '10/05/2013 16:30'. rash (chief complaint) History Of Present Illness Encounter Date Complaint History Of Prese nt Illness No Information Functional Status Date Description Comments No Information Instructions Date Instruction Additional Infor mation No Information Assessments Type Assessment Date No Information Mental Status Date Description Comments Orientation - Oriented to time, place, person, situation.
[2025-06-07 21:38] VITALS: BP 136/99; PULSE 111; RESP 18; TEMP 36.7; O2SAT 98; BMI 24.1
--- OUTSIDE RECORDS SUMMARY | 2025-06-07 21:42 | XMS_ITS | Encounter Summary ---
Author Organization Healthcare Address [address] [place] [address] Care Team Providers Care Early Childhood Coordinator Name Role Phone Pcp, No Primary Care Provider Unavailabl e Reason for Visit * Reason Comments Med Refill Encounter Details Date Type Department Care Team (Late st Contact Info) Description 05/31/2025 Refill [facility] [address], [address] [place] [address] Paulette Cabrera MD [address] [place] [address] Social History Tobacco Use Types Packs/Day Years Used Date Smoking Tobacco: Former Cigarettes Passive Smoke Exposure: Past Smokeless Tobacco: Never Comments:Stopped Vaping in 2023 Alcohol Use Standard Drinks/Week Comments Not Currently 0 (1 standard drink = 0.6 oz pur e alcohol) Humiliation, Afraid, Rape, and Kick questionnair e Answer Date Recorded Within the last year, have y ou been afraid of your partner or ex-partner? No 03/30/2024 Within the last year, have y ou been humiliated or emotionally abused in other ways by your partner or ex-partner? No Within the last year, have y ou been kicked, hit, slapped, or otherwise physically hurt by your partner or ex-partner? No 03/30/2024 Within the last year, have y ou been raped or forced to have any kind of sexual activity by your partner or ex-partner? No 03/30/2024 Social Connection and Isolation Panel Answer Date Recorded In a typical week, how many times do you talk on the phone with family, friends, or neighbors? More than three times a week 03/30/2024 How often do you get togethe r with friends or relatives? More than three times a week 03/30/2024 How often do you attend chur ch or restorationist services? Never 03/30/2024 Do you belong to any clubs o r organizations such as rastafari groups, unions, fraternal or athletic groups, or school groups? No 03/30/2024 How often do you attend meet ings of the clubs or organizations you belong to? Never 03/30/2024 Are you , , di vorced, , never , or living with a partner? 03/30/2024 AUDIT-C Answer Date Recorded Q1: How often do you have a drink containing alcohol? Never 03/30/2024 Q2: How many drinks containi ng alcohol do you have on a typical day when you are drinking? Patient does not drink Q3: How often do you have si x or more drinks on one occasion? Never 03/30/2024 Overall Financial Resource Strain (CARDIA) Answe r Date Recorded How hard is it for you to pa y for the very basics like food, housing, medical care, and heating? Not hard at all 03/30/2024 PHQ-2 Answer Date Recorded Patient Health Questionnaire-2 Score 0 12/20/2024 [facility] - Occupational Stress Questionnaire Answer Date Recorded Do you feel stress - tense, restless, nervous, or anxious, or unable to sleep at night because your mind is troubled all the time - these days? Only a little 03/30/2024 Exercise Vital Sign Answer Date Recorde d On average, how many days pe r week do you engage in moderate to strenuous exercise (like a brisk walk)? 0 days 03/30/2024 On average, how many minutes do you engage in exercise at this level? 0 min 03/30/2024 Hunger Vital Sign Answer Date Recorded Within the past 12 months, y ou worried that your food would run out before you got the money to buy more. Never true 03/30/20 24 Within the past 12 months, t he food you bought just didn't last and you didn't have money to get more. Never true 03/30/2024 PRAPARE - Transportation Answer Date Re corded In the past 12 months, has l ack of transportation kept you from medical appointments or from getting medications? No 03/12 In the past 12 months, has l ack of transportation kept you from meetings, work, or from getting things needed for daily living? No 03/30/2024 Housing Stability Vital Sign Answer Cameron e Recorded In the last 12 months, was t here a time when you were not able to pay the mortgage or rent on time? No 03/30/2024 In the last 12 months, how many places have you lived? 3 03/30/2024 In the last 12 months, was t here a time when you did not have a steady place to sleep or slept in a intermediate (including now)? No 03/30/2024 [place] Depression Scale Answer Date Recorded [place] Depression Scale Total 0 03/30/2024 The thought of harming myself has occurred to me . Never 03/30/2024 Utilities Answer Date Recorded In the past 12 months has th e electric, gas, oil, or water company threatened to shut off services in your home? No 03/30/2024 Education Answer Date Recorded What is the highest level of school you have completed or the highest degree you have received? 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
--- OUTSIDE RECORDS SUMMARY | 2025-06-07 21:42 | XMS_ITS | Clinical Summary ---
Author Organization Healthcare Address [address] [place] [address] Care Team Providers Care Balloon Design Printer Name Role Phone Pcp, No Primary Care Provider Unavailabl e Allergies No known active allergies Medications multivitamin () 27-0.8 MG tablet Take 1 tablet by mouth 1 (one) time each day. Active BABY ASPIRIN PO Take 1 tablet by mouth 1 (one) time each day. Active acetone, urine, test (Ketostix) strip Use as directed to check urine for ketones when BG > 240 mg/dl and when sick. 023 Active BD Pen Needle Jami U/F 32G X 4 MM misc USE TO give injsections SEVEN times daily DIRECTED FOR backup TO insulin pump 023 Active ondansetron ODT (Zofran-ODT) 4 MG disintegrating tablet Take 2 tablets (8 mg) by mouth every 8 (eight) hours if needed. 024 Active nitrofurantoin, macrocrystal-mono hydrate, (Macrobid) 100 MG capsule Take 1 capsule (100 mg) by mouth 1 (one) time each day. 30 capsule 3 024 Active Insulin Pen Needle (Pen Pine Level) 31G X 5 MM misc 1 each 5 (five) times a day. 200 each 3 024 Active Insulin Syringe 30G X 1/2 0.5 ML misc 1 each 5 (five) times a day. 200 each 3 024 Active insulin glargine (Lantus SoloStar, Basaglar) 100 UNIT/ML injection pen Inject 28 Units under the skin every night. To use as backup in case of pump failure. 15 mL 3 024 Active levothyroxine (Synthroid, Levoxyl) 175 MCG tabletIndications :Supervision of high risk in third trimester,Hypothy roidism during in third trimester Take 1 tablet by mouth daily before breakfast. 30 tablet 2 025 Active glucagon (Baqsimi One Pack) 3 MG/DOSE powder Nasal Powder Administer 3 mg into a single nostril for hypoglycemia; if no response, may repeat in 15 minutes using a new intranasal device 1 each 1 025 Active Blood Glucose Monitoring Suppl w/Device kit Use to check blood sugar 3 times daily 1 kit 025 Active Lancets misc Lancets 100 each 2 025 Active glucose blood test strip Use as instructed 100 each 12 025 Active Omnipod 5 [id number] Pods Gen 5 (Omnipod5) misc 1 pod every 3 days 15 each 3 025 Active Insulin Lispro (Admelog, HumaLOG) 100 UNIT/ML injection vial INJECT 100 UNITS ONCE DAILY IN PUMP 30 mL 025 Active Insulin Lispro (Admelog, HumaLOG) 100 UNIT/ML injection vial INJECT 100 UNITS SUBCUTANEOUSLY ONCE DAILY IN PUMP 30 mL 025 2024 Discontinued Hospital, Clinic, or Other Facility Administered Medication Ordered Dose Route Frequency Start Date End Date Status iron sucrose (Venofer) injection 200 mgIndications:Supervision of high risk in third trimester 200 mg IV Once 08/23/2024 Active iron sucrose (Venofer) injection 100 mgIndications:Supervision of high risk in third trimester 100 mg IV Once 08/25/2024 Active Active Problems Problem Noted Date Diagnosed Date Maternal care for other (latisha pected) abnormality and damage, not applicable or unspecified 07/21/2024 GBS bacteriuria 04/25/2024 Hypothyroidism during 03/15/2024 Overview (04/20/2024): Last Assessment & Plan: Please follow TSH's regularly throughout and adjust medications to keep <2.5 per ACOG guidelines for pre-existing hypothyroidism in . Type 1 diabetes mellitus with ketoacidosis witho ut coma 07/17/2023 Encounters Date Type Department Care Team Description 05/31/2025 Refill [facility] [address], [address] [place] [address] Paulette Cabrera MD 04/04/2025 Refill [facility] [address], [address] [place] [address] Eb Leblanc MD from Last 3 Months Immunizations Immunization Administration Dates Next Due Tdap 08/17/2024 Family History Medical History Relation Name Comments Diabetes type I Brother Relation Name Status Comments Brother Social History Tobacco Use Types Packs/Day Years Used Date Smoking Tobacco: Former Cigarettes Passive Smoke Exposure: Past Smokeless Tobacco: Never Tobacco Cessation:Counseling Given: Yes Comments:Stopped Vaping in January 2024 Alcohol Use Standard Drinks/Week Comments Not Currently [...] 03/30/2024 How often do you attend chur or druze services? Never 03/30/2024 Do you belong to any clubs o r organizations such as jainism groups, unions, fraternal or athletic groups, or [...] Recorded Patient Health Questionnaire-2 Score 0 12/20/2024 [facility] - Occupational Stress Questionnaire Answer Date Recorded [...] No 03/30/2024 Housing Stability Vital Sign Answer Cmaeron e Recorded In the last 12 months, [...] place to sleep or slept in a fpc (including now)? No 03/30/2024 [place] Depression Scale Answer Date Recorded [place] Depression Scale Total 0 03/30/2024 The thought of harming myself has occurred to me . Never 03/30/2024 Utilities Answer Date Recorded In the past 12 months has [employer] [place], gas, oil, or water [employer] threatened to shut off services in your [...] file Not on file Not on file Last Filed Vital Signs Vital Sign Reading Time Taken Comments Blood Pressure 120/83 12/20/2024 8:07 AM EDT Pulse 116 12/20/2024 8:07 AM EDT Temperature 36.6 C (97.8 F) 08/24/2024 2:58 PM EST Respiratory Rate 20 08/24/2024 2:58 PM EST Oxygen Saturation 100% 08/24/2024 2:58 PM EST Inhaled Oxygen Concentration - - Weight 58.1 kg (128 lb 1.4 oz) 12/20/2024 8:07 A M EDT Height 154.9 cm (5' 1 ) 12/20/2024 8:07 AM EDT Body Mass Index 24.2 12/20/2024 8:07 AM EDT Plan of Treatment Health Maintenance Due Date Last Done Comments [facility]-HIV Screening 1999 [facility]-Hepatitis C Screening 1999 [facility]-Infant/Child/Adol SDOH Screenings 1999 [id number] Vaccine (#1) 10/23/2004 Diabetes: Dental Exam 10/23/2009 [facility]-Varicella Vaccines (1 of 2 - 13+ 2-dose series) 10/23/2012 HPV Vaccines (1 - 3-dose series) 10/23/2014 [facility]- SDOH Screenings 10/23/2017 [facility]-Adult SDOH Screenings 10/23/2017 [facility]-Hepatitis A Vaccines (2 of 2 - 2-dose series) 07/10/2018 01/08/2018 [facility]-Hepatitis B Vaccines (1 of 3 - 19+ 3-dose series) 10/23/2018 [facility]-Pneumococcal Vaccine: Pediatrics (0 to 5 Years) and At-Risk Patients (6 to 49 Years) (1 of 2 - PCV) 10/23/2018 [facility]-Pap Smear 10/23/2020 [facility]-Influenza Vaccine (#1) 03/12/202504/27, 07/06/2019, 04/11/2018, Additional history exists [facility]-Diabetes: Hemoglobin A1C 03/21/2025 12/20/2024 [facility]-Depression Screening 12/20/2025 12/20/2024, 03/12 [facility]-DTaP,Tdap,and Td Vaccines (3 - Td or Tdap) 08/17/2034 08/17/2024, 02/12/2011 [facility]-Zoster Vaccines (1 of 2) 10/23/2049 [facility]-HIB Vaccines Aged Out No longer e ligible based on patient's age to complete this topic [facility]-IPV Vaccines Aged Out No longer e ligible based on patient's age to complete this topic [facility]-Rotavirus Vaccines Aged Out No lo nger eligible based on patient's age to complete this topic Procedures Procedure Name Priority Date/Time Associated Diagnosis Comments POCT GLYCOSYLATED HEMOGLOBIN (HGB A1C) Routine 12/20/2024 8:21 AM EDT Type 1 diabetes mellitus during , antepartum from Last 3 Months or Most Recently Relevant to Health Maintenance Results * (ABNORMAL) POCT glycosylated hemoglobin (Hb A1C) (12/20/2024 8:21 AM EDT) POCT Hemoglobin A1C 11.7 <5.7% Non-Diabet ic % [facility] Kit Lot Number [id number] [facility] Kit Expiration Date 10/05 [facility] Blood Venous blood specimen / Unknown 12/20/2024 8:21 AM EDT Paulette Cabrera MD POINT OF CARE TEST ENTER/EDIT ORDERABLES Final Result [facility] [address] [place] [address] from Last 3 Months or Most Recently Relevant to Health Maintenance Insurance Care Teams Balloon Design Printer Relationship Specialty Start Date End Date Pcp, No [address] [place] [address] PCP - General Family Medicine 03/12/24
--- OUTSIDE RECORDS SUMMARY | 2025-06-07 21:42 | XMS_ITS | Encounter Summary ---
Author Organization [facility] Address [address] [place] [address] Care Team Providers Care Brand Communications Manager Name Role Phone Jeovanny Anguiano MD Primary Care Provider [phone] Reason for Visit * Reason Comments Medication Refill Encounter Details Date Type Department Care Team (Late st Contact Info) Description 06/08/2023 Refill [facility] Division of Endocrinology [address] [place] [phone] Binh Mc MD Endocrinology [address] [place] [address] Medication Refill Social History Tobacco Use Types Packs/Day Years Used Date Smoking Tobacco: Never Smokeless Tobacco: Never Intimate Partner Violence Answer Date R ecorded If you are in a relationship , do you feel safe in that relationship? Yes 07/16/2023 If you are in a relationship , do you feel safe in that relationship? Yes 07/16/2023 Financial Resource Strain Answer Date R ecorded Are you currently having pro blems with any of the following? Select all that apply. No - I use some or all these benefits but am not having problems with them 08/30/2023 Are you having trouble payin g for any of the things that you and your family need? Select all that apply. None 08/30/2023 Trouble paying for things yo u need (Other) Not on file 08/30/2023 Depression Answer Date Recorded PHQ-2 Score 7 08/30/2023 Food Insecurity Answer Date Recorded * Within the past 12 months, did you/your family worry whether your food would run out before you got money or SNAP/food stamps to buy more? No 08/30/2023 * In the past 12 months, the food you/your family bought did not last and you didn't have money to get more. Never true 2023 Are you worried that you landon l not have enough food for yourself or your family this week? No 08/30/2023 Transportation Needs Answer Date Record ed In the past 12 months, has l ack of transportation kept you from medical appointments, the pharmacy, meetings, work or from getting things needed for daily living? No 08/30/2023 Do you currently have troubl e getting to doctor's appointments or to the pharmacy? No 08/30/2023 Housing Stability Answer Date Recorded What is your living situation today? I have a [facility] [place] place to live 08/30/2023 Do you have problems with an y of these things where you live today? Select all that apply. None 08/30/2023 Housing Problems - Other Not on file 024 Safety and Environment Answer Date Emre rded Do you have any concerns of physical abuse, sexual abuse, or neglect of your child? No 07/16/2023 Is an adult hurting you or your family? No 07/16/2023 Has someone ever touched you in a sexual way that was not ok with you? No 07/16/2023 Is someone hurting your or your family? No 07/16/2023 Historical abuse worry Not on file If you have firearms in the home, are they all in locked storage AND unloaded? Not on file 07/16/2023 Comments Unknown Sex and Gender Information Value Date Recorded Sex Assigned at Not on file Legal Sex Female 2:19 PM EDT Gender Identity Not on file Sexual Orientation Not on file documented as of this encounter Miscellaneous Notes * Telephone Encounter - Natalie Maxwell Medical Asst - 06/08/2023 9:11 AM EST Patient has current script, it was just ordered on 05/13/23 documented in this encounter Plan of Treatment Not on file documented as of this encounter Visit Diagnoses Not on filedocumented in this encounter Additional Health Concerns Infection Onset Date Last Indicated Resolved Time COVID-19 Rule Out 07/16/2023 07/16/2023 07/16/2023 6:50 PM EST documented as of this encounter Care Teams Brand Communications Manager Relationship Specialty Start Date End Date Jeovanny Anguiano MD [address] [place] [address] PCP - General External Family Practice 10/17/18 documented as of this encounter
--- OUTSIDE RECORDS SUMMARY | 2025-06-07 21:42 | XMS_ITS | Encounter Summary ---
Author Organization [facility] Address [address] [place] [address] Care Team Providers Care Pressure Dispatcher Name Role Phone Jeovanny Anguiano MD Primary Care Provider [phone] Reason for Visit * Reason Comments Medication Refill Encounter Details Date Type Department Care Team (Late st Contact Info) Description 08/10/2024 Refill [facility] Division of Diabetes and Endocrinology [address] [place] [phone] Sol Oliver APRN-VITA Endocrinology [address] [place] [address] [place] [address] Medication Refill Social History Tobacco Use [...] encounter Miscellaneous Notes * Telephone Encounter - Mary Beatty, Marine Insulator - 08/10/2024 10:39 AM EST No longer a childrens patient. Please reach out to patient. documented in this encounter Plan of Treatment Not on file documented as of this encounter Visit Diagnoses Diagnosis Type 1 diabetes mellitus with hyperglycemia Type I (juvenile type) diabetes mellitus without mention of complication, not stated as uncontrolled documented in this encounter Care Teams Pressure Dispatcher Relationship Specialty Start Date End Date Jeovanny Anguiano MD [address] [place] [address] PCP - General External Family Practice 10/17/18 documented as of this encounter
--- OUTSIDE RECORDS SUMMARY | 2025-06-07 21:42 | XMS_ITS | Clinical Summary ---
Author Organization [facility] Address [address] [place] [address] Care Team Providers Care Woods Boss Name Role Phone Provider, No Known Primary Care Provider Unavail able Allergies No known active allergies Medications levothyroxine (SYNTHROID, LEVOTHROID) 125 MCG tablet Take 150 mcg by mouth Daily. Active Vit-Fe Fumarate-FA ( vitamin 27-0.8) 27-0.8 MG tablet tablet Take 1 tablet by mouth Daily. Active Continuous Glucose Sensor (Dexcom G6 Sensor) Use 3 Devices Every 10 (Ten) Days. Active Continuous Glucose Generation Technologist (Dexcom G6 Generation Technologist) device Use 1 Device Continuous. Active Continuous Glucose Transmitter (Dexcom G6 Transmitter) misc Use 1 Device Every 3 (Three) Months. Active aspirin 81 MG EC tablet Take 1 tablet by mouth Daily. Active oxyCODONE (ROXICODONE) 5 MG immediate release tabletIndications :Delivery of by section,Pre-exist ing insulin treated diabetes mellitus during ,Type 1 diabetes mellitus without complication Take 1 tablet by mouth Every 4 (Four) Hours As Needed for Moderate Pain for up to 40 doses. 40 tablet 09/02/2024 12:11 PM EST Active Active Problems Problem Noted Date Diagnosed Date Pre-existing insulin treated diabetes mellitus during 08/27/2024 Type 1 diabetes mellitus without complication Overview (04/11/2025): UPDATING PER 2024 REGULATORY 2024 LOAD Assessment & Plan (03/15/2024 11:47 AM EDT): Patient has an Omnipod5/DexcomG6 hybrid closed-loop insulin pump. I was able to pull her Dexcom report and her blood sugars are not where they need to be. I reviewed with the patient that the Omnipod is unfortunately a difficult pump to have in . I recommended that she follow with me at the [facility] at as we can print out the full Omnipod report and work with her more closely there. Additionally, she needs to establish care with an adult Vendor Analyst which she can do there. I have asked the staff at my Diabetes in Clinic at [facility] to reach out to the patient and get her scheduled for next Wednesday there. In the meantime, I reviewed the goals for blood glucose in , including fasting blood sugars < 90-95mg/dl and 2-hr post-prandial values < 110-120mg/dl. We talked about how a smooth blood glucose curve is almost as important as working towards these goals as baby and mom feel the impacts of the low values and baby particularly feels the high values. We discussed the importance of protein in her diet and of eating scheduled meals and eating high protein snacks between meals and at bedtime. We reviewed the complications associated with poorly controlled diabetes in including increased risk for miscarriage, congenital abnormalities, macrosomia, need for operative delivery, damage to maternal or structures at delivery, stillbirth, complications that necessitate NICU admission, and childhood obesity and/or early development of Type 2 DM. - Recommend patient start a daily ASA 81mgs - Recommend a baseline set of preeclampsia labs be collected including serum creatinine, uric acid, AST/ALT/LDH - Recommend collection of a baseline 24hr urine for protein - Recommended to patient that she get an eye exam LASHON - Recommend patient get a maternal echo as she has had Type 1 DM for >10yrs - I will see her in my clinic at next week to see if dietary changes have made any difference - Follow-up here for early anatomy and growth scheduled in 4wks Hypothyroidism affecting 03/15/2024 Assessment & Plan (03/15/2024 11:48 AM EDT): Please follow TSH's regularly throughout and adjust medications to keep <2.5 per ACOG guidelines for pre-existing hypothyroidism in . Social History Tobacco Use Types Packs/Day Years Used Date Smoking Tobacco: Former Smokeless Tobacco: Former Tobacco Cessation:Counseling Given: Not Answered Alcohol Use Standard Drinks/Week Comments Never 0 (1 standard drink = 0.6 oz pur e alcohol) [facility] Utilities Answer Date Recorded In the past 12 months has th e electric, gas, oil, or water company threatened to shut off services in your home? No 08/27/2024 AUDIT-C Answer Date Recorded Q1: How often do you have a drink containing alcohol? Never 08/27/2024 Q2: How many drinks containi ng alcohol do you have on a typical day when you are drinking? Patient does not drink Q3: How often do you have si x or more drinks on one occasion? Never 08/27/2024 Overall Financial Resource Strain (CARDIA) Answe r Date Recorded How hard is it for you to pa y for the very basics like food, housing, medical care, and heating? Not hard at all 08/27/2024 [facility] - Occupational Stress Questionnaire Answer Date Recorded Do you feel stress - tense, restless, nervous, or anxious, or unable to sleep at night because your mind is troubled all the time - these days? Not at all 08/27/2024 Exercise Vital Sign Answer Date Recorde d On average, how many days pe r week do you engage in moderate to strenuous exercise (like a brisk walk)? 4 days 08/27/2024 On average, how many minutes do you engage in exercise at this level? 40 min 08/27/2024 Hunger Vital Sign Answer Date Recorded Within the past 12 months, y ou worried that your food would run out before you got the money to buy more. Never true 08/27/19 25 Within the past 12 months, t he food you bought just didn't last and you didn't have money to get more. Never true 08/27/2024 PRAPARE - Transportation Answer Date Re corded In the past 12 months, has l ack of transportation kept you from medical appointments or from getting medications? No 08/12 In the past 12 months, has l ack of transportation kept you from meetings, work, or from getting things needed for daily living? No 08/27/2024 [place] Depression Scale Answer Date Recorded [place] Depression Scale Total 0 09/11/2024 The thought of harming myself has occurred to me . Never 09/11/2024 Abuse Screen Answer Date Recorded Feels Unsafe at Home or Work/School no 08/27/2024 Feels Threatened by Someone no 08/12 Does Anyone Try to Keep You From Having Contact with Others or Doing Things Outside Your Home? no 08/27/2024 Physical Signs of Abuse Present no 08/27/2024 Housing Stability Answer Date Recorded Current Living Arrangements home 08/12 Potentially Unsafe Housing Conditions none 08/27/2024 Family and Community Support Answer Cameron e Recorded If for any reason you need h elp with day-to-day activities such as bathing, preparing meals, shopping, managing finances, etc., do you get the help you need? I don't need any help 08/27/2024 How often do you feel lonely or isolated from those around you? Never 08/27/2024 Employment Answer Date Recorded Do you want help finding or keeping work or a job? I do not need or want help 08/27/2024 Disabilities Answer Date Recorded Difficulty Concentrating, Remembering or Making Decisions no 08/27/2024 Difficulty Managing Errands Independently no 08/27/2024 Education Answer Date Recorded Do you want help with school or training? For example, starting or completing job training or getting a high school diploma, GED or equivalent No 08/27/2024 Preferred Language Dominican 08/27/2024 PHQ-2 Answer Date Recorded Patient Health Questionnaire-2 Score 0 08/27/2024 Comments No Sex and Gender Information Value Date Recorded Sex Assigned at Not on file Legal Sex Female 11:30 AM EDT Gender Identity Not on file Sexual Orientation Not on file Last Filed Vital Signs Vital Sign Reading Time Taken Comments Blood Pressure 131/80 09/02/2024 7:21 AM EST Pulse 77 09/02/2024 7:21 AM EST Temperature 36.7 C (98.1 F) 09/02/2024 7:21 AM EST Respiratory Rate 18 09/02/2024 7:21 AM EST Oxygen Saturation 98% 08/29/2024 9:32 PM EST Inhaled Oxygen Concentration - - Weight 70.3 kg (155 lb) 08/27/2024 4:15 AM EST Height 154.9 cm (5' 1 ) 08/27/2024 4:15 AM EST Body Mass Index 29.29 08/27/2024 4:15 AM EST Plan of Treatment Health Maintenance Due Date Last Done Comments Annual Gynecologic Pelvic an d Breast Exam 1999 DIABETIC EYE EXAM 10/23/2009 DIABETIC FOOT EXAM 10/23/2009 URINE MICROALBUMIN-CREATININ E RATIO (uACR) 10/23/2009 HPV VACCINES (1 - 3-dose series) 10/23/2014 Hepatitis B (1 of 3 - 19+ 3- dose series) 10/23/2018 Pneumococcal Vaccine 0-49 (1 of 2 - PCV) 10/23/2018 ANNUAL PHYSICAL 02/24/2024 HEPATITIS C SCREENING 02/24/2024 INFLUENZA VACCINE 02/09/2025 05/25/2023, , 07/06/2019, Additional history exists HEMOGLOBIN A1C 06/21/2025 12/20/2024, 08/12, 05/25/2023, Additional history exists TDAP/TD VACCINES (3 - Td or Tdap) 08/17/2034 025, 02/12/2011 Insurance PASSPORT BY FINA Advance Directives * CPR (Attempt to Resuscitate) (Latest Code Status on File) Date Activated Date Inactivated Comments 08/29/2024 4:42 PM 09/02/2024 4:53 PM Question Answer Comments Code Status (Patient has no pulse and is not breathing): CPR (Attempt to Resuscitate) Medical Interventions (Patie nt has pulse or is breathing): Full * CPR (Attempt to Resuscitate) Date Activated Date Inactivated Comments 08/29/2024 11:13 AM 08/29/2024 4:42 PM Question Answer Comments Code Status (Patient has no pulse and is not breathing): CPR (Attempt to Resuscitate) Medical Interventions (Patie nt has pulse or is breathing): Full Support Level Of Support Discussed With: Patient * CPR (Attempt to Resuscitate) Date Activated Date Inactivated Comments 08/28/2024 4:28 AM 08/29/2024 11:13 AM Question Answer Comments Code Status (Patient has no pulse and is not breathing): CPR (Attempt to Resuscitate) Medical Interventions (Patie nt has pulse or is breathing): Full Support Level Of Support Discussed With: Patient * CPR (Attempt to Resuscitate) Date Activated Date Inactivated Comments 08/27/2024 1:07 AM 08/28/2024 4:28 AM Question Answer Comments Code Status (Patient has no pulse and is not breathing): CPR (Attempt to Resuscitate) Medical Interventions (Patie nt has pulse or is breathing): Full Support Level Of Support Discussed With: Patient Care Teams Woods Boss Relationship Specialty Start Date End Date Provider, [place] [address] PCP - General 02/24/24
--- OUTSIDE RECORDS SUMMARY | 2025-06-07 21:42 | XMS_ITS | Encounter Summary ---
Author Organization Healthcare Address [address] [place] [id number] Care Team Providers Care Commuter Pilot Name Role Phone Pcp, No Primary Care Provider Unavailabl e Reason for Visit * Reason Comments Med Refill Encounter Details Date Type Department Care Team (Late st Contact Info) Description 04/04/2025 Refill [facility] [address] [facility], [address] [place] [address] Eb Leblanc MD [address] [id number] Social History Tobacco Use Types Packs/Day Years [...] often do you attend chur ch or scientologist services? Never 03/30/2024 Do you belong to any clubs o r organizations such as druze groups, unions, fraternal or athletic groups, or [...] Patient Health Questionnaire-2 Score 0 12/20/2024 [facility] - Occupational [...] place to sleep or slept in a halfway (including now)? No 03/30/2024 [place] Depression Scale Answer Date Recorded [place] Depression Scale Total 0 03/30/2024 The thought [...] documented as of this encounter Care Teams Commuter Pilot Relationship Specialty Start Date End Date Pcp, No [address] [place] [address] PCP - General Family Medicine 03/12/24 documented as of this encounter
--- OUTSIDE RECORDS SUMMARY | 2025-06-07 21:42 | XMS_ITS | Encounter Summary ---
Author Organization Healthcare Address [address] [place] [address] Care Team Providers Care Sack Lifter Name Role Phone Pcp, No Primary Care Provider Unavailabl e Reason for Visit * Reason Comments Med Refill Encounter Details Date Type Department Care Team (Late st Contact Info) Description 12/04/2024 Refill [facility] [address], [address] [place] [address] Lacey Najera MD [address] [facility] [address] [place] [address] Social History Tobacco Use Types Packs/Day Years [...] often do you attend chur ch or faith services? Never 03/30/2024 Do you belong to any clubs o r organizations such as restorationism groups, unions, fraternal or athletic groups, or [...] Date Recorded Patient Health Questionnaire-2 Score 0 03/30/2024 [facility] Occupat ional Health - Occupational [...] place to sleep or slept in a chcf (including now)? No 03/30/2024 [place] Depression Scale Answer Date Recorded [place] Depression Scale Total 0 03/30/2024 The thought [...] received? 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 Not on file Not on file documented as of this encounter Miscellaneous Notes * Telephone Encounter - Melinda Manzanares RN - 12/05/2024 1:56 PM EDT duplicate documented in this encounter Plan of Treatment Not on file documented as of this encounter Visit Diagnoses Not on filedocumented in this encounter Additional Health Concerns Assessment Noted Time A Body Mass Index follow-up plan has been documented for the patient 08/24/2024 11:11 AM EST documented as of this encounter Care Teams Sack Lifter Relationship Specialty Start Date End Date Pcp, No [address] [place] [address] PCP - General Family Medicine 03/12/24 documented as of this encounter
--- OUTSIDE RECORDS SUMMARY | 2025-06-07 21:42 | XMS_ITS | Encounter Summary ---
Author Organization [facility] Address [address] [place] [address] Care Team Providers Care Telephone Operator Chief Name Role Phone Jeovanny Anguiano MD Primary Care Provider [phone] Reason for Visit * Reason Comments Medication Refill Encounter Details Date Type Department Care Team (Late st Contact Info) Description 09/23/2024 Refill [facility] Division of Diabetes and Endocrinology [address] [place] [id number] Sol Oliver APRN-VITA Endocrinology [address] [place] [address] [place] [id number] Medication Refill Social History Tobacco Use [...] encounter Miscellaneous Notes * Telephone Encounter - Yolanda Miranda, RN - 09/25/2024 8:19 AM EDT No longer under [facility] care documented in this encounter Plan of Treatment Not on file documented as of this encounter Visit Diagnoses Diagnosis Type 1 diabetes mellitus with hyperglycemia Type I (juvenile type) diabetes mellitus without mention of complication, not stated as uncontrolled documented in this encounter Care Teams Telephone Operator Chief Relationship Specialty Start Date End Date Jeovanny Anguiano MD [address] [place] [address] PCP - General External Family Practice 10/17/18 documented as of this encounter
--- OUTSIDE RECORDS SUMMARY | 2025-06-07 21:42 | XMS_ITS | Clinical Summary ---
Author Organization [facility] Address [address] [place] [address] Care Team Providers Care Major General Name Role Phone Jeovanny Anguiano MD Primary Care Provider [phone] Source Comments [facility] is fully rolled out with thefollowing exceptions:General Clinical Research [facility] Allergies No known active allergies Medications etonogestrel (NEXPLANON) 68 MG subdermal implant 68 mg by Subdermal route 1 time. To be inserted by healthcare provider. Active ACCU-CHEK FASTCLIX LANCETS each Check BG up to 8 times dialy 204 each 04/27/20 22 Active insulin pen needle (BD PEN NEEDLE JOSE CRUZ U/F) 32G X 4 MM miscellaneous Use to give injections 7 times daily as directed. Back up to pump 200 each 03/24/20 23 Active insulin pen needle (BD PEN NEEDLE JOSE CRUZ U/F) 32G X 4 MM miscellaneous USE TO give injsections SEVEN times daily DIRECTED FOR backup TO insulin pump 200 each 05/13/20 23 Active acetone (urine) test strip (KETOSTIX) strip Use as directed to check urine for ketones when BG > 240 mg/dl and when sick. 100 strip 6 05/21/20 Active Continuous Blood Gluc Sensor (DEXCOM G6 SENSOR) each Use as directed 3 each 6 05/21/20 23 Active Continuous Blood Gluc Transmit (DEXCOM G6 TRANSMITTER) each Dispense Dexcom G6 Transmitter. Used as directed to monitor glucose continuously. E10.65 1 each 3 05/21/20 23 Active glucagon (BAQSIMI TWO PACK) 3 MG/DOSE nasal powder [place] 3 mg in the nose as directed (use as directed for unresponsive hypoglycemia). 2 each 3 05/21/20 23 Active insulin lispro (HumaLOG) 100 UNIT/ML injection vialIndications:T ype 1 diabetes mellitus with hyperglycemia USE DIRECTED - UP TO 100 UNITS DAILY 30 mL 07/27/19 24 Active etonogestrel (NEXPLANON) 68 MG subdermal implant Inject 68 mg subcutaneously 1 time. Active Blood Glucose Monitoring Suppl (ONETOUCH VERIO FLEX SYSTEM) w/Device each Use as directed to test BG 6 times daily. 1 kit 08/30/19 24 Active glucose blood (ONETOUCH VERIO) strip Use to check BG 6 times daily. 200/30 days 200 strip 08/30/19 24 Active levothyroxine (SYNTHROID) 125 MCG tablet TAKE 1 TABLET BY MOUTH ONCE DAILY 30 tablet 08/30/19 24 Active Insulin Disposable Pump (OMNIPOD 5 G6 POD (GEN 5)) each Continuation of previous therapy Patient needs to change pods every 72 hours ( 6 boxes of 5 each=90 day supply) 30 each 3 08/30/19 24 Active Active Problems Problem Noted Date Diagnosed Date Type 1 diabetes mellitus with ketoacidosis witho ut coma 07/17/2023 DKA (diabetic ketoacidosis) 07/16/2023 Counseling for transition fr pediatric to adult care provider 04/11/2018 Overview (05/25/2023): Diabetes Transition Planning Completed readiness assessment: Yes Yes - comments: 05/25/[address]: Yes Yes - comments: Aug 2023 to be last appointment Transfer complete?: No Patient's self-readiness assessment responses are as follows: 05/25/2023 12:39 PM READDY I am able to describe diabetes in my own words Somewhat, but I need a little practice I am able to explain what Hemoglobin A1c (HbA1c) measures Yes, I can do this I am able to recall my most recent HbA1c Somewhat, but I need a little practice I am able to state my target HbA1c Somewhat, but I need a little practice I am able to describe three semiconductor testing group leader problems that might come from high HbA1c Yes, I can do this I am able to teach a friend or roommate about signs of hypoglycemia Yes, I can do this I am able to teach a friend or roommate about treatment of hypoglycemia, including use of Glucagon Yes, I can do this I am able to tell someone how alcohol effects blood glucose Yes, I can do this I am able to explain long-term impact of tobacco on heart health in people with diabetes Yes, I can do this I am able to explain the impact of diabetes on sexual health/function No, I still need lots of practice I am able to explain the impact of glucose control before and during No, I still need lots of practice I am able to list examples of tests done in routine visits to identify or prevent complications of diabetes Yes, I can do this I am able to arrange for transportation to medical appointments Yes, I can do this I am able to ask questions of the medical team during my clinic visit Yes, I can do this I am able to answer questions about my own past health history Yes, I can do this I am able to answer questions about my family medical history Yes, I can do this I am able to call the office for treatment advice Yes, I can do this I am able to have medical insurance or speak to a social media coordinator or financial counselor about getting coverage Yes, I can do this I am able to call my insurance company and ask about my coverage for supplies and medicines Yes, I can do this I am able to refill a prescription at the pharmacy Yes, I can do this I am able to seek emotional support as needed (family, friends, online community, mormonism services, social media coordinator, support group, therapist, etc...) Yes, I can do this I am able to identify a hospital for emergency care Yes, I can do this I am able to identify a primary care provider (one main health care provider I see for all my medical needs other than diabetes) Yes, I can do this I am able to contact prospective schools and employers for disability accomodations (if necessary) No, I still need lots of practice I am able to find out accurate information about diabetes (through support groups, websites, ADA, JDRF etc.) Yes, I can do this I am able to give my own insulin with a syringe, pen or pump Yes, I can do this I am able to determine my insulin dose according to my blood glucose Yes, I can do this I am able to determine my insulin dose according to what I am eating Yes, I can do this I am able to adjust my insulin doses according to my blood glucose patterns over time Yes, I can do this I am able to count carbohydrates and know where to look for carb information Yes, I can do this I am able to test blood glucose before each meal and when having symptoms of low glucose values No, I still need lots of practice I am able to perform diabetes care (take insulin, check blood glucose) in front of peers, friends, co-workers or in public when necessary No, I still need lots of practice I am able to notice differences in my health, such as weight change or illness Yes, I can do this I am able to manage my diabetes during illness, including when to call my provider Yes, I can do this I am able to respond to positive ketones Yes, I can do this I am able to describe strategies to prevent low and high blood glucose levels when exercising Yes, I can do this I am able to manage my diabetes safely when driving (e.g. check blood glucose before driving, treat high or low blood glucose values) Yes, I can do this END READDY Knowledge (Knowing the facts about diabetes) Subscale (Higher = More Ready) 4.58 END READDY Navigation (Taking care of diabetes on my own) Subscale (Higher = More Ready) 4.85 END READDY Insulin Management (Insulin/Diabetes Management Skills) (Higher = More Ready) 5 END READDY Health Behaviors (Diabetes Management) (Higher = More Ready) 4 END READDY Insulin Pump Skills (Higher = More Ready) Incomplete Acanthosis nigricans 08/19/2016 Primary hypothyroidism 12/28/2015 Overview (08/19/2016): Synthroid, 100 mcg/day. Elevated LDL cholesterol level 12/28/2015 Type 1 diabetes mellitus with hyperglycemia 11/10 Resolved Problems Problem Noted Date Diagnosed Date Resolved Date Hyperlipidemia LDL goal < 100 06/17/2015 12/28/2015 Overview (05/08/2025): Updated as part of IMO process, approved by . Immunizations Immunization Administration Dates Next Due Influenza Vaccine 0.5 mL - f or patients 6 months and older 05/25/2023,04/27/2022,07/06/2019,2017,04/11/2016 Family History Medical History Relation Name Comments Diabetes Type 1 Brother Heart Attack Under 55 (sudde n cardiac ) Father Hypertension Maternal Grandfather Heart Disease Maternal Grandmother CHF Hypertension Maternal Grandmother Hypothyroidism Maternal Grandmother Other Maternal Grandmother COPD - second hand smoke Relation Name Status Comments Brother Alive Father Alive Maternal Grandfather (Age 50) [place] - first heart attack Maternal Grandmother Alive Mother Alive Paternal Grandmother Alive Social History Tobacco Use Types Packs/Day Years [...] Sign Reading Time Taken Comments Blood Pressure 102/72 08/30/2023 10:15 AM EST Pulse 100 08/30/2023 10:15 AM EST Temperature 36.6 C (97.9 F) 07/17/2023 11:36 AM EST Respiratory Rate 15 07/17/2023 11:36 AM EST Oxygen Saturation 98% 07/17/2023 11:36 AM EST Inhaled Oxygen Concentration - - Weight 62.6 kg (138 lb 0.1 oz) 08/30/2023 10:15 AM EST Height 155.8 cm (5' 1.34 ) 08/30/2023 10:[address] Body Mass Index 25.79 08/30/2023 10:15 AM EST Plan of Treatment Health Maintenance Due Date Last Done Comments MMR IMMUNIZATION (1 of 1 - Standard series) 10/23/2000 DTAP/Tdap/Td IMMUNIZATION (2 - Td or Tdap) 03/12/2011 02/12/2011 VARICELLA IMMUNIZATION (1 of 2 - 13+ 2-dose series) 10/23/2012 HPV IMMUNIZATION (1 - 3-dose series) 10/23/2014 HEPATITIS B IMMUNIZATION (1 of 3 - 19+ 3-dose series) 10/23/2018 PNEUMOCOCCAL IMMUNIZATION (1 of 2 - PCV) 10/23/2018 AMB SEASONAL FLU VACCINE (#1) 03/12/2025 05/25/2023, 04/27/2022, 07/06/2019, Additional history exists COVID-19 Vaccine (1 - 2024- season) 2025 MCV4 IMMUNIZATION Aged Out 02/12/2011 No longer eligible based on patient's age to complete this topic HIB IMMUNIZATION Aged Out No longer e ligible based on patient's age to complete this topic IPV IMMUNIZATION Aged Out No longer e ligible based on patient's age to complete this topic MENINGOCOCCAL B VACCINE Aged Out No l onger eligible based on patient's age to complete this topic Respiratory Syncytial Virus (RSV) <20mo Aged Out No longer eligible based on patient's age to complete this topic [place] [address] [place] [address] [employer] [place] [employer] Care Teams Major General Relationship Specialty Start Date End Date Jeovanny Anguiano MD [address] [place] [id number] PCP - General External Family Practice 10/17/18
--- OUTSIDE RECORDS SUMMARY | 2025-06-07 21:42 | XMS_ITS | Clinical Summary ---
Author Organization [facility] Address [address] [place] [address] Phone Care Team Providers Care As400 Consultant Name Role Phone Elly Martinez APRN Primary Care Provider [phone] Allergies No known active allergies Medications Lancets [facility] 8 Active Acetone, Urine, Test [facility] Strip 8 Active Insulin [place], Disposable, 32 gauge x 5/32 [facility] Needle 6 Active Blood Glucose Control High&Low [facility] Solution 7 Active Blood Sugar Diagnostic [facility] Strip 8 Active HUMALOG U-100 INSULIN 100 unit/mL SubQ Solution 8 Active insulin lispro (HUMALOG) 100 unit/mL SubQ Solution Use up to 100 units per day via insulin pump 8 Active insulin syringe-needle U-100 0.3 mL 31 gauge x 15/64 [facility] Syringe 7 Active ACCU-CHEK FASTCLIX LANCET DRUM [facility] 8 Active AVIANE 0.1-20 mg-mcg Oral Tablet 8 Active levonorgestrel- ethin estradiol (LEVONORGESTREL -ETHINYL ESTRAD ORAL) Active Zjkfrjwt-Wv-Ace -Fe-FA ( VITAMIN) Oral Tablet Take 1 Tab by mouth daily. 30 Tab 9 Active insulin lispro (HUMALOG) 100 unit/mL SubQ Solution Subcutaneous (Inject under the skin) once. Active insulin lispro (ADMELOG SOLOSTAR U-100 INSULIN SUBQ) Subcutaneous (Inject under the skin). Active LEVOthyroxine (SYNTHROID) 125 mcg Oral TabletIndicatio ns:Hypothyroidi sm (acquired) Take 125 mcg by mouth daily. 3 Active ferrous sulfate 325 mg (65 mg iron) Oral Tablet, Delayed Release (E.C.)Indicatio ns:Iron deficiency anemia, unspecified iron deficiency anemia type Take 1 Tablet by mouth 2 times daily. 60 Tablet 2 3 Active Active Problems Problem Noted Date Diagnosed Date Iron deficiency anemia, unspecified 02/01/2023 Malabsorption of iron 02/01/2023 Type 1 diabetes mellitus without complication Medical History Medical History Date Comments Diabetes mellitus (HCC) type 1 Thyroid disease Social History Tobacco Use Types Packs/Day Years Used Date Smoking Tobacco: Never Smokeless Tobacco: Never Tobacco Cessation:Counseling Given: Not Answered Alcohol Use Standard Drinks/Week Comments Yes 0 (1 standard drink = 0.6 oz pur e alcohol) occ Sexually Active Control Partners Comments Yes Comments No Sex and Gender Information Value Date Recorded Sex Assigned at Not on file Legal Sex Female 8:04 AM EDT Gender Identity Not on file Sexual Orientation Not on file Last Filed Vital Signs Vital Sign Reading Time Taken Comments Blood Pressure 116/88 04/12/2023 7:56 AM EDT Pulse 91 04/12/2023 7:56 AM EDT Temperature 36.8 C (98.2 F) 04/12/2023 7:56 AM EDT Respiratory Rate 18 04/12/2023 7:56 AM EDT Oxygen Saturation 98% 04/12/2023 7:56 AM EDT Inhaled Oxygen Concentration - - Weight 60.3 kg (133 lb) 04/12/2023 7:56 AM EDT Height 157.5 cm (5' 2 ) 04/12/2023 7:56 AM EDT Body Mass Index 24.33 04/12/2023 7:56 AM EDT Plan of Treatment Health Maintenance Due Date Last Done Comments HPV (1 - 3-dose series) 10/23/2014 Kidney Health: uACR 10/23/2017 Hepatitis B Vaccine (1 of 3 - 19+ 3-dose series) 10/23/2018 Pneumococcal Vaccine 0-49 (1 of 2 - PCV) 10/23/2018 DTaP/TDaP/Td (2 - Td or Tdap) 02/12/2021 02/12/2011 Lipids 08/19/2023 08/19/2022, 10/2015, 09/13/2015, Additional history exists Annual Wellness Exam 09/12/2023 09/11/2022 Kidney Health: eGFR 10/03/2023 10/02/2022, 05/05/2022, 12/06/2021, Additional history exists Diabetic Eye Exam 09/11/2024 09/11/2022 COVID-19 Vaccine ( season) 2025 Influenza Vaccine (#1) 2025 , 04/27/2022, 07/06/2019, Additional history exists Hemoglobin A1c 06/21/2025 12/20/2024, 08/12, 08/19/2022, Additional history exists Cervical Cancer Screening 11/09/2025 Pap Smear 11/09/2025 11/09/2022, 11/13/2021 Chlamydia Screening Discontinued 09/11/2022 Meningococcal B Vaccine Aged Out No l onger eligible based on patient's age to complete this topic Goals Goal Patient Goal Type Associated Problems Recent Progress Patient-Stated? Author Blood Pressure < 140/90 Blood Pressure 116/88(2022 7:56 AM EDT) No Thalia Israel MA BMI (Calculated) < 30 General 24.4(04/12/20 7:56 AM EDT) No Thalia Israel MA Maintain a healthy diet, exercise regularly and maintain an ideal body weight General No Thalia Israel MA HEMOGLOBIN A1C < 7.0 Result Component No Thalia Israel MA Procedures Procedure Name Priority Date/Time Associated Diagnosis Comments BASIC METABOLIC PANEL STAT 10/02/2022 3:54 PM EDT CHLAMYDIA/GC BY TMA Routine 09/11/2022 9:07 AM EST Screening for chlamydial disease LIPID PANEL REFLEX Callback 09/13/2015 8: 05 AM EST DM w/ coma type I, uncontrolled (HCC) Hyperlipemia from Last 3 Months or Most Recently Relevant to Health Maintenance Results * (ABNORMAL) BASIC METABOLIC PANEL (10/02/2022 3:54 PM EDT) Sodium 137 136 - 145 mmol/L 10/02/2022 4:16 PM EDT [facility] Potassium 3.7 3.5 - 5.0 mmol/L 10/02/2022 4:16 PM EDT [facility] Chloride 102 98 - 107 mmol/L 10/02/2022 4:16 PM EDT [facility] Total CO2 24 22 - 29 mmol/L 10/02/2022 4:16 PM EDT [facility] Anion Gap 11 7 - 16 mmol/L 10/02/2022 4:16 PM EDT [facility] Calcium 9.3 8.6 - 10.4 mg/dL 10/02/2022 4:16 PM EDT [facility] Glucose Lvl 132(H) 74 - 100 mg/dL 10/02/2022 4:16 PM EDT [facility] BUN 15 6 - 20 mg/dL 10/02/2022 4:16 PM EDT [facility] Creatinine 0.45(L) 0.51 - 1.30 mg/dL 10/02/2022 4:16 PM T [facility] eGFR (CKD-EPIcr 2020) 139 >=60 mL/min/1.7 3 m2 10/02/2022 4:16 PM T [facility] Comment:Estimated GFR was ca lculated using the CKD-EPIcr (2020) equation refit without race. The equation is recommended by the National Kidney Foundation - [place] Society of Nephrology Task Force. Blood VENOUS BLOOD / Unknown Venipuncture / Unknown 10/02/2022 3:54 PM EDT 10/02/2022 4:04 PM EDT us Nataliya Wrightg [employer] CHEMISTRY ORDERABLES Final R esult [facility] [address] [place] [address] * CHLAMYDIA/GC BY TMA (09/11/2022 9:07 AM EST) Chlamydia trachomatis Not Detected Not Detected 09/12/2022 6:07 AM EST [facility] [employer], [facility] Neisseria gonorrhoeae Not Detected Not Detected 09/12/2022 6:07 AM EST [facility] [employer] [facility] Urine URINE SPECIMEN COLLECTION / Unknown 09/11/2022 9:07 AM EST 09/11/2022 9:07 AM EST Narrative PREFERRED [employer], [facility] - 09/12/2022 6:07 AM EST Testing methodology is measurement operator mediated amplification (TMA) using the Aptima Combo 2 assay from [employer]. A negative result does not completely rule out a Chlamydia trachomatis or Neisseria gonorrhoeae infection due to potential inhibitors or levels present below the limit of detection by this assay. Results are dependent on proper collection and transport of specimen. This test is indicated for medical purposes only and should not be used for legal or forensic purposes. The performance characteristics of this assay were validated by the testing laboratory. This assay is FDA cleared to test the following specimens: clinician-collected endocervical, vaginal, male urethral swab specimens, rectal swabs, and throat/pharyngeal swabs; patient collected vaginal specimens within a clinic setting; Thin Prep Specimens in PreservCyt Solution; and first-stream, unpreserved male and female urine specimens. Detailed methodology is available upon request. Elly Martinez [employer] MICROBIOLOGY - GENERAL ORD ERABLES Final Result [facility] [employer], [address] , [place] [address] * LIPID PANEL REFLEX (09/13/2015 8:05 AM EST) Cholesterol 150 <=200 mg/dL [facility] Comment: < 200 Desirable 200 - 239 Borderline High >= 240 High Triglyceride 61 <=150 mg/dL [facility] Comment: < 150 Normal 150 - 199 Borderline High 200 - 499 High >= 500 Very High HDL 48 >=40 mg/dL [facility] Comment: > 60 Optimal 40 - 60 Acceptable < 40 Low Blood specimen (specimen) UPPER LIMB STRUCTURE / Unknown 09/13/2015 8:05 AM EST 09/13/2015 1:23 PM EST Narrative [facility] - 09/13/2015 2:08 PM EST Fax to [phone] us Binh Mc MD CHEMISTRY ORDERABLES Final R esult [facility] [address] [place] [address] from Last 3 Months or Most Recently Relevant to Health Maintenance [place] [address] Care Teams As400 Consultant Relationship Specialty Start Date End Date Elly Martinez APRN [address] [place] [address] PCP - General Nurse Practitioner 09/11/22
--- OUTSIDE RECORDS SUMMARY | 2025-06-07 21:42 | XMS_ITS | Encounter Summary ---
Author Organization [facility] Address [address] [place] [id number] Care Team Providers Care Welding Operator Name Role Phone Jeovanny Anguiano MD Primary Care Provider [phone] Reason for Visit * Reason Comments Medication Refill Encounter Details Date Type Department Care Team (Late st Contact Info) Description 01/15/2022 Refill [facility] Division of Diabetes and Endocrinology [address] [place] [phone] Binh Mc MD Endocrinology [address] [place] [address] [place] [phone] Medication Refill Social History Tobacco Use Types Packs/Day Years Used Date Smoking Tobacco: Never Smokeless Tobacco: Never Intimate Partner Violence Answer Date R ecorded Safe in relationship? (up to 18) Yes 10/28/2020 Safe in relationship? (18 and older) Yes 10/28/2020 Depression Answer Date Recorded PHQ-2 Score 15 10/28/2020 Safety and Environment Answer Date Emre rded Abuse or neglect worry (Parent/Guardian) No 06/24/2020 Adult hurting you or family (11-18) No 06/24/2020 Someone touched you in a sexual way? (11-18) No 06/24/2020 Someone hurting you or family (18 and older) No 06/24/2020 Historical abuse worry Not on file 0 If you have firearms in the home, are they all in locked storage AND unloaded? Not on file 06/24/2020 (RETIRED 04/2022) Guns In Home Not on file 1 08/25/2019 (RETIRED 04/2022) Guns Unloaded or Locked Away N ot on file 06/24/2020 Comments Unknown Sex and Gender Information Value [...] stated as uncontrolled documented in this encounter Additional Health Concerns Infection Onset Date Last Indicated Resolved Time COVID-19 Rule Out 07/16/2023 07/16/2023 07/16/2023 6:50 PM EST documented as of this encounter Care Teams Welding Operator Relationship Specialty Start Date End Date Jeovanny Anguiano MD [address] [place] [address] PCP - General External Family Practice 10/17/18 documented as of this encounter
--- OUTSIDE RECORDS SUMMARY | 2025-06-07 21:42 | XMS_ITS | Clinical Summary ---
Author Organization [facility] Address [address] [place] [id number] Care Team Providers Care Heel Sander Name Role Phone Jeovanny Anguiano MD Primary Care Provider [phone] Jesika Marino MD Unavailable [phone] Allergies No known active allergies Medications levothyroxine (SYNTHROID) 100 mcg tablet Take 100 mcg by mouth daily. Active insulin subcutaneous pump (Admelog) 100 units/ml Elastomeric Pump, Lo Marcie Rate by SQ Continuous route. Active Etonogestrel (NEXPLANON) 68 mg Implant 68 mg by Subcutaneous route. Active Insulin Glargine (Lantus Solostar U-100 Insulin) 100 unit/mL (3 mL) Solostar INPN Variable dose- Use up to 50 units 1 time daily. 2 Active ferrous sulfate 325 mg (65 mg iron) EC tablet Take 325 mg by mouth. 3 Active loratadine (CLARITIN) 10 mg tablet 3 Active drospirenone-eth inyl estradioL (LORAINE) 3-0.03 mg Tablet Take 1 Tablet by mouth daily. 84 Tablet 5 4 Active Active Problems Problem Noted Date Diagnosed Date Well woman exam 11/13/2021 Overview (10/08/2023): Cervical cancer screening: Gardasil: unsure, counseled 11/13/2021 and 11/10/2022 - desires but worried her insurance wont cover? Discussed <27 and medicaid should be covered. Plans to call 11/13/2021: LGSIL 11/09/2022: LGSIL Contraception: 11/2018: Nexplanon in LUE 11/13/2021: spotting --> desires to keep x 5 years 08/24/2022: Nexplanon replaced (ongoing AUB) 11/09/2022: start COCs to help with BTB - daily - helped for a few months 10/08/2023: Nexplanon removed - start [place] Breast cancer screening: Colon cancer screening: Due age 44 DXA: Due age 64, sooner pending FRAX Other: Acanthosis nigricans 08/19/2016 Primary hypothyroidism 12/28/2015 Overview (11/13/2021): Synthroid, 100 mcg/day. Elevated LDL cholesterol level 12/28/2015 Type 1 diabetes mellitus, uncontrolled 5 Immunizations Immunization Administration Dates Next Due Influenza A (H1N1) Monovalent 07/06/2019, 018 Influenza, Seasonal, Injectable, Preservative Fr ee 04/27/2022 Social History Tobacco Use Types Packs/Day Years Used Date Smoking Tobacco: Never Smokeless Tobacco: Never Tobacco Cessation:Counseling Given: No Alcohol Use Standard Drinks/Week Comments Yes 0 (1 standard drink = 0.6 oz pur e alcohol) Comments No Sex and Gender Information Value Date Recorded Sex Assigned at Not on file Legal Sex Female 2:21 PM EDT Gender Identity Not on file Sexual Orientation Not on file Last Filed Vital Signs Vital Sign Reading Time Taken Comments Blood Pressure 114/70 10/08/2023 10:46 AM EDT Pulse - - Temperature - - Respiratory Rate - - Oxygen Saturation - - Inhaled Oxygen Concentration - - Weight 61.2 kg (135 lb) 10/08/2023 10:46 AM EDT Height 154.9 cm (5' 1 ) 10/08/2023 10:46 AM EDT Body Mass Index 25.51 10/08/2023 10:46 AM EDT Plan of Treatment Health Maintenance Due Date Last Done Comments Diabetes A1c Monitoring 1999 Diabetes Mellitus Eye Exam (Yearly) 1999 Diabetes Mellitus Foot Care (Yearly) 1999 HPV Vaccine (1 - 3-dose series) 10/23/2014 Lipid Monitoring 10/23/2016 Tetanus Vaccination (Every 1 0 Years) 02/12/2021 02/12/2011 Depression Screening 07/12/2024 Diabetes Mellitus Microalbum in (Yearly) 07/12/2024 Renal Monitoring 07/12/2024 06/28/2021 COVID-19 Vaccine (1 - 2024-2 6 season) 2025 Influenza Vaccination (#1) 03/12/202505/25, 04/27/2022, 07/06/2019, Additional history exists Cervical Cancer Screening 11/09/2025 11/09/2022, 11/2021 Procedures Procedure Name Priority Date/Time Associated Diagnosis Comments PAP Routine 11/09/2022 10:45 AM EDT Well woman exam Cervical cancer screening from Last 3 Months or Most Recently Relevant to Health Maintenance Results * (ABNORMAL) PAP (11/09/2022 10:45 AM EDT) Diagnosis Comment(A) [facility] Comment: EPITHELIAL CELL ABNORMALITY. LOW GRADE SQUAMOUS INTRAEPITHELIAL LESION (LSIL). Adequacy Comment [facility] Comment: Satisfactory for evaluation. Endocervical and/or squamous metaplastic cells (endocervical component) are present. Performed Comment [facility] Comment:Sha Almazan ytotechnologist (ASCP) Electronically signed by: Comment [facility] Comment:Олег Cash, Pathologist Notes Comment [facility] Comment: The Pap smear is a screening test designed to aid in the detection of premalignant and malignant conditions of the uterine cervix. It is not a diagnostic procedure and should not be used as the sole means of detecting cervical cancer. Both false-positive and false-negative reports do occur. Pap Vial 11/09/2022 10:4 5 AM EDT 11/17/2022 5:06 PM EDT us Jesika Marino MD PATHOLOGY/CYTOLOGY ORDERABL ES Final Result [facility] [address] [place] [address], [facility] from Last 3 Months or Most Recently Relevant to Health Maintenance Insurance [employer] Care Teams Heel Sander Relationship Specialty Start Date End Date Jeovanny Anguiano MD [address] [place] [address] PCP - General Family Medicine 11/13/21 Jesika Marino MD [address] [place] [address] Obstetrics & Gynecology 11/13/21
--- NOTE | 2025-06-07 22:02 | ED_ITS ---
<Statement entered by Eva Mckinney DO - 06/08/25 00:09> I was consulted by the CHRISTINE, and we discussed the complexity of problems being addressed. I approve the treatment and management plan for this patient's care in the emergency department, thus performing a substantial portion of the medical decision making. Eva Mckinney DO Discharge Plan Disposition Patient Disposition: Home, Self-Care Prescriptions Prescriptions: New amoxicillin-pot clavulanate 875-125 mg tablet 1 tab PO Q12H Qty: 20 0RF No Action (DME) Omnipod 5 G6-G7 Pods (Gen 5) Cartridge See Rx Instructions .ROUTE .MEDSUPPLY Qty: 5 Patient Comments: USE 1 EVERY OTHER DAY DIRECTED Rx Instructions: As directed levonorgestrel-ethinyl estrad [Aviane] 0.1-20 mg-mcg tablet 1 tab PO DAILY Qty: 84 4RF (DME) subcutaneous insulin pump Misc See Dose Instructions .ROUTE .MEDSUPPLY Qty: 1 Dose Instruction: As directed Rx Instructions: As directed levothyroxine 125 mcg tablet 125 mcg PO HS Qty: 30 1RF insulin lispro 100 unit/mL solution 0 unit SQ DIRECTED Patient Comments: USE DIRECTED-UP TO 100 UNITS DAILY Rx Instructions: DIRECTED Referrals Follow up/Referrals: dental clinic [Other] - See instructions Provider,Referral, MD [Primary Care Provider, Medical] - See instructions Activity Restrictions/Add. Instructions Additional Instructions/Restrictions: You were seen for dental pain. Please call your dentist for follow-up tomorrow. Return here if you have fever, increased pain and inability to open your mouth, swallow or eat. Clinical Impressions Clinical Impression: Pain, dental Instructions Patient Instructions: DI for Dental Pain Print Language Print Language: Persian Discharge ED Provider: Eva Mckinney General Adult HPI General Chief complaint: Dental/Oral Stated complaint: right side tooth pain, Time Seen by Provider: 06/07/25 21:33 Mode of Arrival: Ambulatory Source of Information: Patient Description of Symptoms (Recalled from ER Triage Doc. by RN): pt reports right sided upper tooth pain that began last week and has progressivly gotten worse. pt reports she was told it needed pulled previously due to it being broken but did not follow up. pt reports a history of uncontrolled type 1 diabetes History of Present Illness HPI narrative: Patient presents complaining of right upper dental pain for 1 week. She reports that she is able to eat and open her mouth. She has been taking Tylenol without improvement. Denies any fevers. She did have nausea yesterday without vomiting. Patient does have type 1 diabetes. MD complaint: Dental pain Onset (ago): week(s) (1) Location: mouth Radiation: non-radiation Severity: severe Consistency: intermittent Relieving factors: other (Tylenol) Exacerbating factors: none Associated symptoms: denies other symptoms Treatments prior to arrival: other (Last dose of Tylenol at 3 PM) Related Data Home Medications ?Medication ?Instructions ?Recorded ?Confirmed subcutaneous insulin pump #1 ea 11/23/18 10/02/24 insulin lispro 100 unit/mL 0 unit SQ DIRECTED 04/2110/02/24 subcutaneous solution insulin pump cart,auto,BT,G6/7 #5 ea 08/03/24 10/02/24 (Omnipod 5 G6-G7 Pods (Gen 5) subcutaneous cartridge) Previous Rx's ?Medication ?Instructions ?Recorded levothyroxine 125 mcg tablet 125 mcg PO HS #30 tabs levonorgestrel-ethinyl estradiol 1 tab PO DAILY #84 ta bs 10/02/24 0.1 mg-20 mcg tablet (Aviane) amoxicillin 875 mg-potassium 1 tab PO Q12H #20 tabs clavulanate 125 mg tablet Allergies Allergy/AdvReac Type Severity Reaction Status Date / Time No Known Allergies Allergy Verified 10/02/24 09:29 [facility] Disclaimer: The information contained in this section may have been updated after the patient was seen, as this information can be updated by other users. Medical History (Updated 06/07/25 @ 22:25 by ANA Lacey) DM type 1 (diabetes mellitus, type 1) GBS bacteriuria Nausea and vomiting of , antepartum Hypothyroidism complicating Type 1 diabetes mellitus complicating , antepartum Hypothyroidism Diabetes Surgical History (Updated 10/02/24 @ 10:19 by Lesly León DO) S/P No history of previous surgery Family History Other No significant family history Social History (Reviewed 08/21/24 @ 15:20 by MINI Sim Smoking Status: Current every day smoker alcohol intake: never current occupational status: employed Travel in the last 8 weeks?: None Have you lived/traveled outside US in past 30 days?: No Contact w/someone who lives/traveled outside US past 30 days?: No Exposure to someone with infectious disease in past 14 days?: No Do you have a fever (greater than 100.4 F or 38 C)?: No Have you tested positive for COVID-19?: No Exposed to someone with COVID-19 in past 14 days?: No Do you have a sore throat?: No Do you have a cough?: No Do you have any weakness?: No Do you have any diarrhea?: No Are you experiencing any unusual bleeding?: No Do you have any muscle aches/pain?: No Do you have any abdominal pain?: No Are you experiencing loss of taste or smell?: No Other Medical History Have you received the Flu Vaccine for this season: No Have you received the Pneumonia Vaccine: No ROS Obtained: Yes Systems reviewed as appropriate & no additional complaints except as documented Physical Exam General General appearance: alert and in no apparent distress Head Head exam: atraumatic and normocephalic Eye Eye exam: Present normal appearance and EOMI ENT ENT exam: Present other (Right upper dental tenderness posteriorly, no palpable abscess) Chest Chest inspection: Present symmetric chest wall rise Respiratory Respiratory exam: Present normal lung sounds bilaterally; Absent wheezes or stridor Cardiovascular Cardiovascular exam: Present regular rate and normal rhythm; Absent systolic murmur Extremities Exam Extremities exam: Present full ROM Neurological Exam Neurological exam: Present alert and oriented X3 Psychiatric Psychiatric exam: Present normal affect and normal mood Skin Skin exam: Present warm, dry and intact Medical Decision Making Medical Records Screening: Per USPSTF and CDC recommendations, given the prevalence of disease in our region, it is our hospital?s policy to screen for HIV and viral Hepatitis for all patients aged 18 and over and those with ongoing risk factors. Vladimir Inquiry Pt receiving controlled substance: Yes Vladimir was queried for this patient: Yes Risks and benefits of using a controlled substance: were discussed with pt by me Vital Signs: 06/07/25 21:38 Temperature 98.1 F Temperature Source Oral Pulse Rate [Right] 111 H Respiratory Rate 18 Blood Pressure [Right Arm] 136/99 H Blood Pressure Mean [Right Arm] 111 02 Sat by Pulse Oximetry 98 Oxygen Delivery Method Room Air Orders (Tests/Meds): ED MEDICATIONS Discontinued Medications Generic Name Dose Route Start Last Admin Trade Name Sindi PRN Reason Stop Dose Admin Lidocaine HCl 10 ml 06/07/25 21:51 06/07/25 22:07 Lidocaine 1% 10ml Mdv IJ 06/07/25 21:52 10 ml ONCE ONE Administration Oxycodone HCl 5 mg 06/07/25 22:30 Oxycodone 5mg Immediate Release Tablet PO 06/07/25 22:31 ONCE STA Medical Decision Narrative: In summary patient is a 24-year-old female who presents the emergency department for evaluation of dental pain. Patient is slightly upon arrival, afebrile. Right upper dental tenderness without evidence of abscess. Patient administered dental block. Upon repeat evaluation patient acceptable resolution of symptoms. Given this patient is appropriate for discharge home at this time with a prescription for Augmentin and oxycodone. Critical Care Critical Care Time Critical Care Time: No
[2025-06-07] MEDS: LIDOCAINE 1% 10ML MDV 10 ML IJ (22:07)
[2025-06-07] MEDS: OXYCODONE 5MG IMMEDIATE RELEASE TABLET 5 MG PO (22:36)
[2025-06-07 23:13] VITALS: BP 123/78; PULSE 71; RESP 18; TEMP 36.6; O2SAT 98
[2025-06-07] MEDS: AMOXICILLIN/CLAVULANATE POTASSIUM 875/125MG TABLET 1 EACH PO (23:16)
[2025-06-07] MEDS: LIDOCAINE 1% W/EPI 1:100,000 20ML VIAL 10 ML IJ (23:18)
== END 2025-06-07 23:23 | disposition home or self-care (01) ==
PROVIDERS: Emergency Provider Student in an Organized Health Care Education/Training Program
DX: K08.89 Other specified disorders of teeth and supporting structures (principal); R11.0 Nausea; F17.210 Nicotine dependence, cigarettes, uncomplicated; E10.9 Type 1 diabetes mellitus without complications
CPT/HCPCS: 99283; 99284; J2003; J2004